=== PATIENT | male | born 1945 | race Caucasian/White ===

== ENCOUNTER 2018-04-12 17:50 | Inpatient (IN) ==
[2018-04-12] MEDS ORDERED: MethylPREDNISolone Sod Succinate Inj 125 MG/2 ML Vial IV.PUSH ONE (18:07)
[2018-04-12 18:29] LABS: ABG Base Excess 11.4 mmol/L (-2-2); ABG PCO2 89 mmHg (38-42); ABG PO2 52 mmHg (61-120)
--- NOTE | 2018-04-12 18:54 | XR ---
EXAM DATE: 04/12/2018 6:20 PM EDT AGE/SEX: 73 years / Male INDICATIONS: Shortness of breath today. CLINICAL DATA: This is the patient's initial encounter. Patient reports that signs and symptoms have been present for 1 day and indicates a pain score of 0/10. MEDICAL/SURGICAL HISTORY: Chronic obstructive pulmonary disease. Emphysema. Hypertension. Non e. COMPARISON: No prior exams available for comparison. FINDINGS: A single AP view of the chest demonstrates the lungs to be symmetrically aerated without evidence of mass, infiltrate or effusion. The cardiomediastinal contours are unremarkable. Osseous structures a re intact. CONCLUSION: No acute cardiopulmonary process. Electronically signed by: Hadley Parekh MD 04/12/2018 6:52 PM EDT
[2018-04-12] MEDS ORDERED: Azithromycin Inj 500 MG in Sodium Chlor 0.9% Inj 250 ML IV.SIG ONE (19:03)
--- NOTE | 2018-04-12 19:03 | ED ---
HPI General Chief Complaint: Respiratory Symptoms Stated Complaint: Respiratory Problem Time Seen by Provider: 04/12/18 17:58 Source: patient and family Mode of arrival: EMS Limitations: altered mental status History of Present Illness Patient is a 73-year-old male, past medical history significant for COPD on 4 L nasal cannula at home, hypertension, Parkinson's disease, neuropathy, who presents with complaint of shortness of breath. Most of the history comes from the as the patient is too dyspneic and too altered to answer most questions. She states that earlier today he started to be more disoriented than normal with increased work of breathing. This has worsened throughout the day prior to becoming here. She denies fevers and chills. Patient denies pain at this time. states that she and the patient have had an extensive discussion regarding his goals of care and they refuse intubation if it becomes necessary. Complaint: shortness of breath and cough Onset (ago): hour(s) Severity: severe Consistency/Duration: constant Relieving factors: nothing Exacerbating factors: nothing Known history of: COPD Treatment prior to arrival: oxygen Related Data Home oxygen amount: 4 liters Home Medications Medication Instructions Recorded Confirmed aspirin 81 mg PO DAILY 04/12/18 04/12/18 gabapentin 800 mg PO BID 04/12/18 04/12/18 ropinirole 0.25 mg PO TID 04/12/18 04/12/18 simvastatin 40 mg PO QPM 04/12/18 04/12/18 tramadol 50 mg PO Q6H 04/12/18 04/12/18 Allergies Allergy/AdvReac Type Severity Reaction Status Date / Time No Known Allergies Allergy Unverified 04/12/18 18:07 Review of Systems ROS Unobtainable unobtainable due to mental status Constitutional Denies fever(s) Cardiovascular Denies chest pain Respiratory Reports dyspnea Gastrointestinal Denies abdominal pain [facility] Medical History Medical History COPD (chronic obstructive pulmonary disease) (Acute) HTN (hypertension) (Acute) Neuropathy (Acute) Parkinson disease (Acute) Social History Social History Substance History: No History of Abuse Second Hand Smoke Exposure: No Smoking Status: Former smoker Tobacco Type: Cigarettes How Often Do You Have a Drink Containing Alcohol: Never Recent Travel in [facility] within the Last 8 Weeks: No Recent Out of Country Travel within the Last 8 Weeks: No Exam Narrative Exam Narrative: GENERAL: Elderly, confused male in acute respiratory distress SKIN: Focused skin assessment warm/dry, with multiple bruises over the forearms and shins. HEAD: Atraumatic. Normocephalic. EYES: Pupils equal and round. No scleral icterus. No injection or drainage. ENT: No nasal bleeding or discharge. Mucous membranes pink and moist. NECK: Trachea midline. No JVD. CARDIOVASCULAR: Tachycardic to the 100s. No murmur appreciated. Intact peripheral pulses RESPIRATORY: Severely diminished breath sounds throughout with faint wheezes. Extensive accessory muscle use. In acute respiratory distress. GASTROINTESTINAL: Abdomen soft, non-tender, nondistended. Hepatic and splenic margins not palpable. MUSCULOSKELETAL: No obvious deformities. No cyanosis. Slight edema to the bilateral lower extremities. NEUROLOGICAL: Awake and intermittently alert. No obvious cranial nerve deficits. Motor grossly within normal limits. Normal speech. PSYCHIATRIC: Appropriate mood and affect; insight and judgment normal. Course Reevaluation(s) Reevaluation #1: Patient is receiving first duoneb, but has not started improving yet. Time: 18:25 Reevaluation #2: Patient has received 2 breathing treatments and continue to be in distress. He will be placed on Bipap. Time: 18:35 Reevaluation #3: Patient is starting to improve on Bipap at this time. Time: 18:50 Additional Reevaluation(s): 1919: Patient is still having difficulty while on Bipap. I spoke again with the to confirm wishes. She states that they have had several conversations and refuse intubation. She understands that he may worsen, and ultimately . Several RTs and RN Ruben have been present for this conversation. Initial Documented Vital Signs Pulse Rate 112 H 04/12/18 18:20 Respiratory Rate 28 H 04/12/18 18:20 Last Documented Vital Signs Temperature 98.3 F 04/12/18 18:54 Pulse Rate 85 04/12/18 20:59 Respiratory Rate 24 04/12/18 20:59 Blood Pressure 113/59 L 04/12/18 20:59 Pulse Oximetry 98 04/12/18 20:59 Critical Care Time Critical Care Time: Yes Total Critical Care Time: 45 Attestation: Aggregate critical care time was 45 minutes. Time to perform other separately billable procedures was not included in the critical care time. My time did not include minutes spent treating any other patients simultaneously or on activities that did not directly contribute to the patient's treatment. The services I provided to this patient were to treat and/or prevent clinically significant deterioration that could result in: , disability, hypoxia, hypoxic brain injury I provided critical care services requiring my management, as noted below: Chart data review, documentation time, medication orders and management, vital sign assessments/reviewing monitor data, ordering and reviewing lab tests, ordering and interpreting/reviewing x-rays and diagnostic studies, care of the patient and discussion of the patient with the admitting physicians. Medical Decision Making MDM Narrative Medical decision making narrative: Patient is a 73-year-old male, past medical history significant for COPD on 4 L of oxygen at home, hypertension, Parkinson' s disease, who presents with complaint of worsening dyspnea and disorientation throughout the day. On arrival he cannot provide much history and most was obtained through the . He arrived in acute respiratory distress and was given several breathing treatments which did not help him. He was then placed on BiPAP after which he began to improve. He was given Solu-Medrol, Rocephin, azithromycin for his acute COPD exacerbation. I had several conversations with the regarding goals of care, and she adamantly refuses intubation with mechanical ventilation despite the consequences of which she is aware. I spoke with Dr. Lemus, the content producer, and we agreed that the patient should be admitted to the ICU at [facility]. Differential Diagnosis Differential Diagnosis: Differential diagnosis includes but is not limited to COPD exacerbation, pneumonia, pulmonary embolism, acute coronary syndrome, metabolic disturbance, pneumothorax. Medical Records Medical records reviewed: Yes I reviewed the patient's medical records. Lab Data Result diagrams: 04/12/18 19:35 04/12/18 19:35 Lab Results 04/12/18 04/12/18 04/12/18 Range/Units 18:20 19:35 19:35 CBC w Diff Auto diff final WBC 13.8 H (4.0-11.0) th/mm3 RBC 4.03 L (4.50-5.90) mil/mm3 Hgb 12.5 L (13.0-17.0) gm/dL Hct 37.0 L (39.0-51.0) % MCV 91.7 (80.0-100.0) fL MCH 31.0 (27.0-34.0) pg MCHC 33.7 (32.0-36.0) % RDW 15.4 (11.6-17.2) % Plt Count 239 (150-450) th/mm3 MPV 7.9 (7.0-11.0) fL Neut % (Auto) 89.1 H (16.0-70.0) % Lymph % (Auto) 3.2 L (9.0-44.0) % [place] % (Auto) 6.0 (0.0-8.0) % Eos % (Auto) 0.1 (0.0-4.0) % Baso % (Auto) 1.6 (0.0-2.0) % Neut # (Auto) 12.4 H (1.8-7.7) th/mm3 Lymph # (Auto) 0.4 L (1.0-4.8) th/mm3 [place] # (Auto) 0.8 (0.0-0.9) th/mm3 Eos # (Auto) 0.0 (0.0-0.4) th/mm3 Baso # (Auto) 0.2 (0.0-0.2) th/mm3 WBC Differential . Differential Comment . Puncture Site Left radial Patient Temperature 98.6 O2 Saturation 79 L* (90-100) % ABG pH 7.26 L* (7.380-7.420) ABG pCO2 89 H* (38-42) mmHg ABG pO2 52 L* (61-120) mmHg ABG HCO3 39 H (22-26) mmol/L ABG O2 Content 14.1 (12.0-20.0) Vol % ABG Base Excess 11.4 H (-2-2) mmol/L ABG Methemoglobin 1.3 (0-2) % Phillip Test Present Hemoglobin 12.7 (12.0-16.0) G/DL Carboxyhemoglobin 2.2 (0-4) % O2 Delivery Device Nasal cannula Liter Flow 4.00 L/M Inspired O2 21 % Critical Value Yes Sodium 136 (136-145) meq/L Potassium 3.6 (3.5-5.1) meq/L Chloride 95 L (98-107) meq/L Carbon Dioxide 37.5 H (21.0-32.0) meq/L Anion Gap 4 L (5-15) meq/L BUN 22 H (7-18) mg/dL Creatinine 0.72 (0.60-1.30) mg/dL Estimated GFR Greater than 89 (>89) mL/min Random Glucose 166 H (74-106) mg/dL Calcium 8.7 (8.5-10.1) mg/dL Total Bilirubin 0.8 (0.2-1.0) mg/dL AST 39 H (15-37) U/L ALT 17 (12-78) U/L Alkaline Phosphatase 85 (45-117) U/L Troponin I 0.03 (0.02-0.05) ng/mL Total Protein 7.1 (6.4-8.2) g/dL Albumin 3.5 (3.4-5.0) g/dL Imaging Data Attestation: I personally reviewed and interpreted this imaging study as follows : My impression: No acute cardiopulmonary process Radiologist's impression: Chest X-Ray 04/12/18 18:07 CONCLUSION: Discharge Plan Discharge Disposition Patient Disposition: 30 Still Patient Discharge Condition Condition: Critical Discharge Details Diagnosis: Respiratory failure with hypoxia and hypercapnia, Acute exacerbation of chronic obstructive pulmonary disease (COPD) Physicians Team ED Provider: Stacey George Primary Care Provider: UNKNOWN, Attending Provider: Juan Carlos Lemus Status ED Status: Admitted Patient
[2018-04-12 19:53] LABS: Baso # (Auto) 0.2 th/mm3 (0.0-0.2); Baso % (Auto) 1.6 % (0.0-2.0); Eos % (Auto) 0.1 % (0.0-4.0); Hemoglobin 12.5 gm/dL (13.0-17.0); Lymph # (Auto) 0.4 th/mm3 (1.0-4.8); Lymph % (Auto) 3.2 % (9.0-44.0); Mean Corpuscular HGB Conc 33.7 % (32.0-36.0); Mean Corpuscular Volume 91.7 fL (80.0-100.0); Mean Platelet Volume 7.9 fL (7.0-11.0); Mono # (Auto) 0.8 th/mm3 (0.0-0.9); Neut # (Auto) 12.4 th/mm3 (1.8-7.7); Neut % (Auto) 89.1 % (16.0-70.0); Platelet Count 239 th/mm3 (150-450); Red Blood Count 4.03 mil/mm3 (4.50-5.90); Red Cell Distribution Width 15.4 % (11.6-17.2); White Blood Count 13.8 th/mm3 (4.0-11.0)
[2018-04-12 20:06] LABS: Chloride 95 meq/L (98-107); Potassium 3.6 meq/L (3.5-5.1); Sodium 136 meq/L (136-145)
[2018-04-12 20:09] LABS: Albumin 3.5 g/dL (3.4-5.0); Anion Gap 4 meq/L (5-15); Calcium 8.7 mg/dL (8.5-10.1); Carbon Dioxide 37.5 meq/L (21.0-32.0); Glucose,Random 166 mg/dL (74-106)
[2018-04-12 20:10] LABS: Blood Urea Nitrogen 22 mg/dL (7-18)
[2018-04-12 20:12] LABS: Alanine Aminotransferase 17 U/L (12-78)
[2018-04-12 20:13] LABS: Aspartate Aminotransferase 39 U/L (15-37); Glomerular Filtration Rate Greater Than 89 mL/min (>89)
[2018-04-12 20:14] LABS: Total Protein 7.1 g/dL (6.4-8.2)
[2018-04-12 20:15] LABS: Alkaline Phosphatase 85 U/L (45-117)
[2018-04-12 20:17] LABS: Troponin I 0.03 ng/mL (0.02-0.05)
[2018-04-12 23:17] LABS: Bilirubin,Urine Negative (Negative); Clarity,Urine Clear (Clear); Color,Urine Yellow (Yellw/Straw); Glucose,Urine (UA) Negative (Negative); Leukocyte Esterase,Urine Negative (Negative); Nitrite,Urine Negative (Negative); Specific Gravity,Urine 1.025 (1.002-1.035); Urobilinogen,Urine 0.2 mg/dL (Less than 2)
[2018-04-12 23:23] LABS: Squamous Epithelial Cell,Urine 0-5 /hpf (0-5); WBC,Urine 0-5 /hpf (0-5)
--- NOTE | 2018-04-12 23:28 | P.HPCC ---
History of Present Illness Primary Care Physician: UNKNOWN History of Present Illness: 73-year-old male with past medical history significant for COPD on 4 L nasal cannula at home, hypertension, Parkinson's disease, neuropathy, presents with complaint of shortness of breath. Most of the history comes from the medical chart review as the patient is too dyspneic and too altered to answer most questions. Earlier today he started to be more disoriented than normal with increased work of breathing. This has worsened throughout the day prior to becoming here. He denies fevers and chills. Patient denies pain at this time. Per chart documentation the CODE STATUS was discussed with patient's who states that she and the patient have had an extensive discussion regarding his goals of care and they refuse intubation if it becomes necessary. Inpatient Certification: I certify that the inpatient services were ordered in accordance with Medicare regulations governing the order. This includes certification that hospital inpatient services are reasonable and necessary and in the case of services not specified as inpatient-only under 42 CFR 419.22(n), that they are appropriately provided as inpatient services in accordance to with the 2-midnight benchmark under 43 CFR 412.3(e) Review of Systems unobtainable due to mental condition PMFSH - History History Provided By: Family Member - Medical History Medical History: Medical History (Last Reviewed 04/12/18 @ 19:01 by Stacey George MD) COPD (chronic obstructive pulmonary disease) HTN (hypertension) Neuropathy Parkinson disease - Tobacco History Second Hand Smoke Exposure: No Tobacco Use In Past 30 Days: No Smoking Status: Former smoker Tobacco Type: Cigarettes - Alcohol History How Often Do You Have a Drink Containing Alcohol: Never - Substance Use History Substance History: No History of Abuse - Travel History Recent Travel in the [place] Within the Last 8 Weeks: No Recent Travel Out of the Country Within the Last 8 Weeks: No - Immunization History Tetanus Immunization: >5 Years Hx Influenza Vaccine This Season: Yes Medications and Allergies Allergies Allergy/AdvReac Type Severity Reaction Status Date / Time No Known Allergies Allergy Unverified 04/12/18 18:07 Home Medications Medication Instructions Recorded Confirmed Type aspirin 81 mg PO DAILY 04/12/18 04/12/18 History gabapentin 800 mg PO BID 04/12/18 04/12/18 History ropinirole 0.25 mg PO TID 04/12/18 04/12/18 History simvastatin 40 mg PO QPM 04/12/18 04/12/18 History tramadol 50 mg PO Q6H 04/12/18 04/12/18 History Results - Labs CBC & Chem 7: 04/12/18 19:35 04/12/18 19:35 Labs: Short CBC 04/12/18 Range/Units 19:35 WBC 13.8 H (4.0-11.0) th/mm3 Hgb 12.5 L (13.0-17.0) gm/dL Hct 37.0 L (39.0-51.0) % Plt Count 239 (150-450) th/mm3 BMP 04/12/18 19:35 Sodium 136 Potassium 3.6 Chloride 95 L Carbon Dioxide 37.5 H BUN 22 H Creatinine 0.72 Calcium 8.7 Cardiac Enzymes 04/12/18 Range/Units 19:35 Troponin I 0.03 (0.02-0.05) ng/mL Liver Function 04/12/18 Range/Units 19:35 Total Bilirubin 0.8 (0.2-1.0) mg/dL AST 39 H (15-37) U/L ALT 17 (12-78) U/L Alkaline Phosphatase 85 (45-117) U/L Albumin 3.5 (3.4-5.0) g/dL Urine 04/12/18 Range/Units 23:05 Urine Color Yellow (Yellw/Straw) Urine Clarity Clear (Clear) Urine pH 6.0 (5.0-8.5) Ur Specific Ellis 1.025 (1.002-1.035) Urine Protein Negative (Neg-Trace) mg/dL Urine Glucose (UA) Negative (Negative) mg/dL - Imaging Impressions Chest X-Ray 04/12/18 18:07 CONCLUSION: Exam Vital signs: Vital Signs 04/12/18 18:20 04/12/18 18:42 04/12/18 18:54 Temperature 98.3 F Pulse Rate 112 H 105 H Respiratory Rate 28 H 22 Blood Pressure 143/69 H Pulse Oximetry 94 L 83 L 04/12/18 18:59 04/12/18 20:59 04/12/18 21:35 Temperature Pulse Rate 95 H 85 Respiratory Rate 24 24 Blood Pressure 132/77 113/59 L Pulse Oximetry 97 98 97 04/12/18 22:45 04/12/18 22:46 Temperature Pulse Rate 86 Respiratory Rate 22 Blood Pressure 117/60 Pulse Oximetry 100 100 Intake & Output 04/12/18 04/12/18 04/13/18 06:59 18:59 06:59 Intake Total 350 / 350 Balance 350 / 350 Weight 77 kg Intake: IV 350 / 350 Azithromycin Inj 500 MG In NS 250 / 250 Inj 250 ML @ 250 mls/hr IV.SIG ONCE ONE Rx#:[id number] Rocephin Inj 1,000 MG In NS Inj 100 / 100 100 ML @ 200 mls/hr IV.SIG ONCE ONE Rx#:[id number] - Constitutional moderate distress - Routine HEENT Exam Head: Present: normocephalic, atraumatic Eye: Present: PERRL ENT: Present: mucous membranes moist - Routine Neck Exam Present: supple. Absent: JVD, carotid bruit - Routine Respiratory Exam Present: decreased breath sounds, rhonchi, wheezes. Absent: stridor, crackles - Routine Cardiovascular Exam Present: RRR, S1, S2 - Routine Abdominal Exam Present: soft, normoactive bowel sounds. Absent: tenderness - Routine Extremities Exam Absent: cyanosis, clubbing, edema - Routine Skin Exam Present: intact - Routine Neurological Exam Present: moving all extremities Caprini VTE Risk Assessment Caprini VTE Risk Assessment: Moderate/High Risk (score >= 2) Caprini Risk Assessment Model: Point Value = 1 Point Value = 2 Point Value = 3 Point Value = 5 Age 41-60 Minor surgery BMI > 25 kg/m2 Swollen legs Varicose veins or History of unexplained or recurrent spontaneous Oral contraceptives or hormone replacement Sepsis (< 1 month) Serious lung disease, including pneumonia (< 1 month) Abnormal pulmonary function Acute myocardial infarction Congestive heart failure (< 1 month) History of inflammatory bowel disease Medical patient at bed rest Age 61-74 Arthroscopic surgery Major open surgery (> 45 min) Laparoscopic surgery (> 45 min) Malignancy Confined to bed (> 72 hours) Immobilizing plaster cast Central venous access Age >= 75 History of VTE Family history of VTE Factor V Leiden Prothrombin [id number] Lupus anticoagulant Anticardiolipin antibodies Elevated serum homocysteine Heparin-induced thrombocytopenia Other congenital or acquired thrombophilia Stroke (< 1 month) Elective arthroplasty Hip, pelvis, or leg fracture Acute spinal cord injury (< 1 month) Prophylaxis Regimen: Total Risk Factor Score Risk Level Prophylaxis Regimen 0-1 Low Early ambulation 2 Moderate Order ONE of the following: *Sequential Compression Device (SCD) *Heparin 5000 units SQ BID 3-4 Higher Order ONE of the following medications: *Heparin 5000 units SQ TID *Enoxaparin/Lovenox 40 mg SQ daily (WT < 150 kg, CrCl > 30 mL/min) *Enoxaparin/Lovenox 30 mg SQ daily (WT < 150 kg, CrCl > 10-29 mL/min) *Enoxaparin/Lovenox 30 mg SQ BID (WT < 150 kg, CrCl > 30 mL/min) AND/OR *Sequential Compression Device (SCD) 5 or more Highest Order ONE of the following medications: *Heparin 5000 units SQ TID (Preferred with Epidurals) *Enoxaparin/Lovenox 40 mg SQ daily (WT < 150 kg, CrCl > 30 mL/min) *Enoxaparin/Lovenox 30 mg SQ daily (WT < 150 kg, CrCl > 10-29 mL/min) *Enoxaparin/Lovenox 30 mg SQ BID (WT < 150 kg, CrCl > 30 mL/min) AND *Sequential Compression Device (SCD) Assessment and Plan - Assessment and Plan Plan: Respiratory failure COPD exacerbation -BiPAP as needed -IV steroids -DuoNeb scheduled and as needed -Empiric antibiotics Neuropathy -Gabapentin Hypertension -As needed medication DVT GI prophylaxis -Teds SCDs -Subcu heparin -Pepcid Critical Care: The total critical care time was 35 minutes. Time to perform other separately billable procedures was not included in the critical care time.
[2018-04-13] MEDS ORDERED: Acetaminophen 325 MG Tablet PO PRN (04:03)
[2018-04-13] MEDS ORDERED: Bisacodyl 10 MG Supp RECTAL PRN (04:03)
[2018-04-13] MEDS ORDERED: Sod Chloride 0.9% Inj 1,000 ML IV.CONT SCH (04:15)
[2018-04-13] MEDS: MethylPREDNISolone Sod Succinate Inj 40 MG/ML Vial IV.PUSH SCH ×4 (04:54→22:59)
[2018-04-13] MEDS: Heparin - SQ 10,000 UNITS/ML Vial SQ SCH ×3 (05:01→22:59)
[2018-04-13 06:33] LABS: Baso % (Auto) 0.2 % (0.0-2.0); Hematocrit 34.7 % (39.0-51.0); Hemoglobin 11.4 gm/dL (13.0-17.0); Lymph # (Auto) 0.6 th/mm3 (1.0-4.8); Lymph % (Auto) 11.4 % (9.0-44.0); Mono # (Auto) 0.3 th/mm3 (0.0-0.9); Mono % (Auto) 4.8 % (0.0-8.0); Neut # (Auto) 4.8 th/mm3 (1.8-7.7); Neut % (Auto) 83.6 % (16.0-70.0); Platelet Count 199 th/mm3 (150-450); Red Blood Count 3.81 mil/mm3 (4.50-5.90); Red Cell Distribution Width 15.2 % (11.6-17.2); White Blood Count 5.7 th/mm3 (4.0-11.0)
[2018-04-13 06:46] LABS: Activated Partial Thrombo Time 25.5 sec (24.3-30.1); INR 1.1 Ratio; Prothrombin Time 11.3 sec (9.8-11.6)
[2018-04-13 06:52] LABS: Albumin 2.9 g/dL (3.4-5.0); Anion Gap 7 meq/L (5-15); Aspartate Aminotransferase 27 U/L (15-37); Blood Urea Nitrogen 18 mg/dL (7-18); Calcium 8.7 mg/dL (8.5-10.1); Carbon Dioxide 37.4 meq/L (21.0-32.0); Chloride 95 meq/L (98-107); Glomerular Filtration Rate Greater Than 89 mL/min (>89); Glucose,Random 119 mg/dL (74-106); Magnesium 2.4 mg/dL (1.5-2.5); Potassium 4.1 meq/L (3.5-5.1); Sodium 139 meq/L (136-145)
[2018-04-13 06:53] LABS: Alanine Aminotransferase 32 U/L (12-78); Phosphorus 3.5 mg/dL (2.5-4.9)
[2018-04-13 06:56] LABS: Alkaline Phosphatase 74 U/L (45-117); Total Protein 6.3 g/dL (6.4-8.2); Troponin I 0.02 ng/mL (0.02-0.05)
[2018-04-13] MEDS: Gabapentin 400 MG Capsule PO SCH ×2 (07:59→20:00)
[2018-04-13] MEDS: Famotidine PF Inj 20 MG/2 ML Vial IV.PUSH SCH ×2 (08:00→20:00)
[2018-04-13] MEDS: Senna/Docusate Sodium 8.6/50 MG Tablet PO SCH ×2 (08:00→20:00)
--- NOTE | 2018-04-13 08:21 | P.PNCC ---
Subjective Subjective Remarks/Hospital Course: 73-year-old male with past medical history significant for COPD on 4 L nasal cannula at home, hypertension, Parkinson's disease, neuropathy, presents with complaint of shortness of breath. Most of the history comes from the medical chart review as the patient is too dyspneic and too altered to answer most questions. Earlier today he started to be more disoriented than normal with increased work of breathing. This has worsened throughout the day prior to becoming here. He denies fevers and chills. Patient denies pain at this time. Per chart documentation the CODE STATUS was discussed with patient's who states that she and the patient have had an extensive discussion regarding his goals of care and they refuse intubation if it becomes necessary. SUBJ 04/13: Patient is subjectively short of breath but he claims he is improved from yesterday. Slightly tachypneic bilateral mild wheezing heard on exam. Oxygen saturation maintained on 5 L nasal cannula. I have added Spiriva and Symbicort and asked for pulmonology consult Objective Vital Signs / I&O: Vital Signs 04/12/18 18:20 04/12/18 18:42 04/12/18 18:54 Temperature 98.3 F Pulse Rate 112 H 105 H Respiratory Rate 28 H 22 Blood Pressure 143/69 H Pulse Oximetry 94 L 83 L 04/12/18 18:59 04/12/18 20:59 04/12/18 21:35 Temperature Pulse Rate 95 H 85 Respiratory Rate 24 24 Blood Pressure 132/77 113/59 L Pulse Oximetry 97 98 97 04/12/18 22:45 04/12/18 22:46 04/13/18 00:02 Temperature Pulse Rate 86 83 Respiratory Rate 22 22 Blood Pressure 117/60 113/53 L Pulse Oximetry 100 100 04/13/18 00:15 04/13/18 01:21 04/13/18 01:45 Temperature Pulse Rate 80 Respiratory Rate 22 Blood Pressure 122/70 Pulse Oximetry 99 96 04/13/18 02:00 04/13/18 02:41 04/13/18 04:00 Temperature 97.6 F Pulse Rate 90 75 Respiratory Rate 14 26 H Blood Pressure 138/76 Pulse Oximetry 97 97 04/13/18 05:00 04/13/18 05:33 04/13/18 06:00 Temperature Pulse Rate 78 80 Respiratory Rate 30 H 24 Blood Pressure 135/66 155/67 H Pulse Oximetry 100 100 100 04/13/18 07:37 Temperature Pulse Rate 80 Respiratory Rate 16 Blood Pressure Pulse Oximetry Intake & Output 04/12/18 04/13/18 04/13/18 18:59 06:59 18:59 Intake Total 590 / 590 Output Total 350 / 350 Balance 240 / 240 Weight 77 kg 76.3 kg Intake: IV 350 / 350 Azithromycin Inj 500 MG In NS 250 / 250 Inj 250 ML @ 250 mls/hr IV.SIG ONCE ONE Rx#:[id number] Rocephin Inj 1,000 MG In NS Inj 100 / 100 100 ML @ 200 mls/hr IV.SIG ONCE ONE Rx#:[id number] Oral 240 / 240 Output: Urine 350 / 350 Other: # Incontinent Voids 1 Date of Last Bowel Movement 04/12/18 # Bowel Movements 0 Weight On Admission 76.3 kg Result Diagrams: 04/13/18 06:02 04/13/18 06:02 Objective Remarks: - Constitutional Mild distress - Routine HEENT Exam Head: normocephalic, atraumatic Eye: PERRL ENT:mucous membranes moist - Routine Neck Exam supple. Absent: JVD, carotid bruit - Routine Respiratory Exam decreased breath sounds, wityh bilateral rhonchi, wheezes. No crackles - Routine Cardiovascular Exam RRR, S1, S2 - Routine Abdominal Exam soft, normoactive bowel sounds. Absent: tenderness - Routine Extremities Exam cyanosis, clubbing, edema - Routine Skin Exam intact - Routine Neurological Exam moving all extremities Assessment and Plan - Assessment and Plan Plan: Respiratory failure COPD exacerbation -BiPAP as needed -IV steroids -DuoNeb scheduled and as needed -Empiric antibiotics -Add Symbicort and Spiriva -Pulmonology consult Neuropathy -Gabapentin Hypertension -As needed medication DVT GI prophylaxis -Teds SCDs -Subcu heparin -Pepcid Critical Care: Level 2 I confirmed with the patient he wants to be a DNI. He is almost back to his baseline I will consult hospitalist to assume care 04/14/2018. Will transfer to Med/Surg with Tele in the afternoon, if he remains stable Code Status: ALT CODE/DNI
[2018-04-13] MEDS: Budesonide-Formoterol 160/4.5 MCG 6 GM Inhaler INH SCH ×2 (10:08→20:00)
[2018-04-13] MEDS: Tiotropium Bromide 18 MCG/ACT Inhaler INH SCH (10:08)
[2018-04-13 10:42] LABS: ABG Base Excess 11.3 mmol/L (-2-2); ABG PCO2 57 mmHg (38-42); ABG PO2 63 mmHG (61-120)
--- NOTE | 2018-04-13 10:45 | MB ---
cc: Diana Walters MD DATE: 04/13/2018 HISTORY OF PRESENT ILLNESS: The patient is a 73-year-old male with a past medical history of severe COPD on four liter home oxygen continuously, hypertension, Parkinson's disease, neuropathy. He was admitted under critical care medicine yesterday for worsening shortness of breath and being disoriented. ABG was performed on room air, which showed acute hypercapnic and hypoxemic respiratory failure with a pH of 7.26, pCO2 89, PaO2 52, bicarbonate 39 and saturation of 79%. Chest x-ray on admission showed no evidence of any acute cardiopulmonary disease. The patient was started empirically on antibiotics in addition to bronchodilators and IV steroids. Pulmonary medicine was consulted for COPD exacerbation. When seen, the patient is on 4 liter oxygen with a saturation of 94% to 95%. He reports shortness of breath with minimal exertion for several months. He quit smoking 10 years ago and used to smoke a pack a day for about 40 years. He is on nebulizers and Symbicort at home in addition to his home oxygen. He denies any prior history of intubation for his COPD. He denies any edema of the lower extremities. However, the patient reports a productive cough with brown phlegm prior to arrival. He denies any wheezing, fever, chills, or any constitutional symptoms. Furthermore, the patient denies any nausea, vomiting or abdominal pain. PAST MEDICAL HISTORY: Significant for COPD on 4 liters of home oxygen, hypertension, Parkinson's disease, neuropathy. SOCIAL HISTORY: Ex-smoker, quit smoking about 10 years ago with a [id number] history of smoking. Nondrinker. ALLERGIES: NO KNOWN DRUG ALLERGIES. MEDICATIONS AT HOME: Include: 1. Simvastatin. 2. Gabapentin. 3. Aspirin. 4. Tramadol. 5. Ropinirole. FAMILY HISTORY: Noncontributory to present illness. REVIEW OF SYSTEMS: As per HPI. The rest of review of systems unremarkable. PHYSICAL EXAMINATION: GENERAL: A 73-year-old male lying in bed in mild respiratory distress, appears tachypneic. VITAL SIGNS: Afebrile, temperature 97.6, pulse of 99, respiratory rate of 25, blood pressure 120/55, saturation 94-95% on 4 liters of oxygen. HEENT: Atraumatic, normocephalic. Pupils are equal, round, reactive to light and accommodation. Extraocular muscles intact. Conjunctivae pink. Nonicteric sclerae. Oral mucosa within normal. NECK: Supple. No JVD, adenopathy or thyromegaly. Trachea in the midline. CARDIOVASCULAR: Regular rate and rhythm. Normal S1, S2. No murmurs, rubs or gallops noted. PULMONARY: Bilateral equal air entry. Overall diminished breath sounds. No wheezing. ABDOMEN: Soft, nontender. No distention. Positive bowel sounds. EXTREMITIES: No cyanosis, clubbing or edema. NEUROLOGIC: No focal sensory deficit. LABORATORY DATA: WBC 5.7, hemoglobin 11.4, hematocrit 34, platelet count 199. Sodium 139, potassium 4.1, chloride 95, CO2 37, BUN 18, creatinine 0.68, glucose of 119. RADIOGRAPHIC STUDIES: Chest x-ray showed no evidence of any acute cardiopulmonary disease. IMPRESSIONS: 1. Acute hypercapnic and hypoxemic respiratory failure. 2. Chronic obstructive pulmonary disease exacerbation. 3. History of tobacco abuse. 4. Leukocytosis, resolved. 5. Hypertension. 6. Parkinson's disease. 7. Neuropathy. RECOMMENDATIONS: 1. Continue with oxygen and maintain sats above 92%. 2. Continue with current bronchodilators in the form of DuoNeb, Symbicort 160/4.5 two puffs q. 12, Spiriva daily. Agree with IV steroids. He is currently on Solu-Medrol 40 mg IV q. 6 hours. Noninvasive positive pressure ventilation p.r.n. for respiratory distress. 3. Continue with current antibiotics in the form of Rocephin and azithromycin. Monitor for signs of infection which include fever and WBC. I will obtain a sputum culture with gram stain. 4. We will give Diamox 250 mg IV x 1. 5. We will need a pulmonary function test as an outpatient to assess the severity of his obstructive lung disease. 6. Gastrointestinal and deep venous thrombosis prophylaxis. The patient is on Pepcid and heparin subcutaneously respectively. 7. CODE STATUS: Alternative code per records. 8. Further recommendations will be based on hospital course. Thank you for this consultation and allowing us to participate in this patient's care. MD MAHNAZ Momin/DL , 10:14 AM , 10:27 AM
--- NOTE | 2018-04-13 12:06 | ECG ---
Date Performed: 04/12/2018 Time Performed: 18:18:25 PTAGE: 73 years EKG: SINUS TACHYCARDIA POSSIBLE RIGHT VENTRICULAR CONDUCTION DELAY MINIMAL ST DEPRESSION ABNORMA L RHYTHM ECG NO PREVIOUS TRACING DOCTOR: Ruddy Fallon Interpretating Date/Time 04/13/2018 12:04:01
--- NOTE | 2018-04-13 12:29 | ECG ---
Date Performed: 04/13/2018 Time Performed: 04:41:36 PTAGE: 73 years EKG: Sinus rhythm . Normal ECG PREVIOUS TRACING 04/12/18/.18 Since the previous tracing, no significant change noted DOCTOR: Ruddy Fallon Interpretating Date/Time 04/13/2018 12:28:25
[2018-04-13] MEDS: Azithromycin Inj 500 MG in Sodium Chlor 0.9% Inj 250 ML IV.SIG SCH (19:52)
[2018-04-14] MEDS ORDERED: Chlorhexidine Gluconate 2% 1 Pack (2 Cloths) TOPICAL PRN (04:00)
[2018-04-14] MEDS: MethylPREDNISolone Sod Succinate Inj 40 MG/ML Vial IV.PUSH SCH ×4 (05:23→23:27)
[2018-04-14] MEDS: Chlorhexidine Gluconate 2% 1 Pack (2 Cloths) TOPICAL SCH (05:23)
[2018-04-14] MEDS: Heparin - SQ 10,000 UNITS/ML Vial SQ SCH ×3 (05:24→22:00)
--- NOTE | 2018-04-14 07:40 | P.PNFP ---
Subjective Interval history: Pt seen and examined for f/u of COPD exacerbation. Reports he is feeling much better. States he did not require BiPAP overnight. Still with some SOB but almost back to his baseline. Only concern is his breakfast is late this morning. Denies CP, abdominal pain, N/V. Endorses some SOB and wheezing still. States he takes Symbicort at home but hasn't been on Spiriva. Results - Labs Result diagrams: 04/13/18 06:02 04/13/18 06:02 Abnormal lab results 04/13/18 04/13/18 Range/Units 10:29 11:00 ABG pCO2 57 H* (38-42) mmHg ABG HCO3 36 H (22-26) mmol/L ABG Base Excess 11.3 H (-2-2) mmol/L Hemoglobin 11.6 L (12.0-16.0) G/DL Troponin I Less than 0.02 L (0.02-0.05) ng/mL Cardiac Enzymes 04/13/18 Range/Units 11:00 Troponin I Less than 0.02 L (0.02-0.05) ng/mL - Imaging Impressions Chest X-Ray 04/12/18 18:07 CONCLUSION: No acute cardiopulmonary process. Physical Exam Vital signs: Vital Signs 04/13/18 07:37 04/13/18 08:00 04/13/18 09:00 Temperature 97.6 F Pulse Rate 80 86 97 H Respiratory Rate 16 26 H 17 Blood Pressure 131/62 Pulse Oximetry 93 L 93 L 04/13/18 09:01 04/13/18 09:02 04/13/18 10:00 Temperature Pulse Rate 101 H 104 H 99 H Respiratory Rate 30 H 35 H 28 H Blood Pressure 141/62 H Pulse Oximetry 93 L 93 L 95 04/13/18 10:03 04/13/18 11:00 04/13/18 11:05 Temperature Pulse Rate 99 H 97 H 93 H Respiratory Rate 25 H 19 12 Blood Pressure 120/55 L 122/59 L Pulse Oximetry 95 93 L 94 L 04/13/18 12:00 04/13/18 13:00 04/13/18 14:00 Temperature 99.1 F Pulse Rate 93 H 102 H 90 Respiratory Rate 22 24 22 Blood Pressure 121/58 L 116/57 L 107/53 L Pulse Oximetry 94 L 97 96 04/13/18 15:00 04/13/18 15:01 04/13/18 15:34 Temperature Pulse Rate 93 H 96 H 93 H Respiratory Rate 28 H 48 H 14 Blood Pressure 126/62 Pulse Oximetry 93 L 93 L 04/13/18 16:00 04/13/18 17:00 04/13/18 18:00 Temperature 98.7 F Pulse Rate 93 H 94 H 100 H Respiratory Rate 27 H 33 H 33 H Blood Pressure 116/58 L 117/59 L 120/62 Pulse Oximetry 98 91 L 91 L 04/13/18 19:00 04/13/18 19:28 04/13/18 20:00 Temperature 98.9 F Pulse Rate 90 89 91 H Respiratory Rate 25 H 20 30 H Blood Pressure 117/60 122/60 Pulse Oximetry 97 97 92 L 04/13/18 21:00 04/13/18 22:00 04/13/18 23:00 Temperature Pulse Rate 85 81 79 Respiratory Rate 26 H 25 H 21 Blood Pressure 112/59 L 107/58 L 117/59 L Pulse Oximetry 94 L 95 99 04/13/18 23:30 04/13/18 23:37 04/14/18 00:00 Temperature 98.9 F Pulse Rate 92 H 90 Respiratory Rate 25 H 18 26 H Blood Pressure 129/60 Pulse Oximetry 98 04/14/18 01:00 04/14/18 02:00 04/14/18 03:00 Temperature Pulse Rate 94 H 91 H 82 Respiratory Rate 22 30 H 32 H Blood Pressure 116/59 L 124/64 119/57 L Pulse Oximetry 98 94 L 90 L 04/14/18 04:00 04/14/18 04:09 04/14/18 05:00 Temperature 97.7 F Pulse Rate 80 84 79 Respiratory Rate 18 24 15 Blood Pressure 115/55 L 118/58 L Pulse Oximetry 92 L 100 04/14/18 06:00 04/14/18 07:20 Temperature Pulse Rate 90 93 H Respiratory Rate 32 H 22 Blood Pressure 146/70 H Pulse Oximetry 100 96 Intake & Output 04/13/18 04/14/18 04/14/18 18:59 06:59 18:59 Intake Total 1482 / 1482 1070 / 1070 Output Total 650 / 650 1650 / 1650 Balance 832 / 832 -580 / -580 Weight 78.6 kg Intake: IV 482 / 482 350 / 350 NS Inj 1,000 ML @ 84 mls/hr IV. 382 / 382 CONT .[id number] [facility] Rx#:[id number] Azithromycin Inj 500 MG In NS 250 / 250 Inj 250 ML @ 250 mls/hr IV.SIG Q24H [facility] Rx#:[id number] Rocephin Inj 1,000 MG In NS Inj 100 / 100 100 / 100 100 ML @ 200 mls/hr IV.SIG Q12H NAZ[facility] Rx#:[id number] Oral 1000 / 1000 720 / 720 Output: Urine 650 / 650 1650 / 1650 Other: # Incontinent Voids 1 Date of Last Bowel Movement 04/12/18 04/12/18 # Bowel Movements 0 Narrative: GENERAL: WN, WD elderly male resting in bed in NAD. SKIN: Warm and dry. Scattered ecchymoses over extremities. HEENT: AT/NC. Pupils equal and round. MMM. HEART: RRR no m/r/g. LUNGS: Diminished breath sounds with end-expiratory wheezing. ABDOMEN: +BS, soft, NT, ND. EXTREMITIES: No LE edema. Onychomycosis of toenails. NEURO: Awake and alert. Bilateral resting tremor. PSYCH: Appropriate mood and affect. Assessment and Plan - Assessment (1) Respiratory failure with hypoxia and hypercapnia Code(s): J96.91 - Respiratory failure, unspecified with hypoxia; J96.92 - Respiratory failure, unspecified with hypercapnia Status: Acute (2) Acute exacerbation of chronic obstructive pulmonary disease (COPD) Code(s): J44.1 - Chronic obstructive pulmonary disease with (acute) exacerbation Status: Acute - Assessment and Plan 73 year old male with O2-dependent COPD, Parkinson's, and neuropathy admitted on 04/12 for acute respiratory failure secondary to COPD exacerbation. 1. COPD exacerbation, acute hypoxemic/hypercapnic respiratory failure - ABG on admission with pH 7.26, PCO2 89, PO2 52, and bicarb 39 - CXR unremarkable - Decrease SoluMedrol to 40 mg IV Q8H - DuoNeb - Rocephin and Azithromycin - Continue Symbicort and Spiriva (was not on Spiriva at home) - Supplemental O2 and BiPAP PRN - Pulmonology following, appreciate reccs 2. Parkinson's disease - Continue home ropinirole 3. Neuropathy - Continue home gabapentin 4. HLD - Continue home statin GI prophylaxis: Pepcid given systemic steroids DVT prophylaxis: Heparin Discharge Planning: Possibly in next 1-2 days pending continued clinical improvement (1) Respiratory failure with hypoxia and hypercapnia Qualifiers: Chronicity: acute on chronic Qualified Code(s): J96.21 - Acute and chronic respiratory failure with hypoxia; J96.22 - Acute and chronic respiratory failure with hypercapnia
[2018-04-14] MEDS: Gabapentin 400 MG Capsule PO SCH ×2 (08:55→21:59)
[2018-04-14] MEDS: Senna/Docusate Sodium 8.6/50 MG Tablet PO SCH ×2 (08:55→22:01)
[2018-04-14] MEDS: Famotidine PF Inj 20 MG/2 ML Vial IV.PUSH SCH ×2 (08:56→22:00)
[2018-04-14] MEDS: Budesonide-Formoterol 160/4.5 MCG 6 GM Inhaler INH SCH ×2 (08:57→22:01)
[2018-04-14] MEDS: Tiotropium Bromide 18 MCG/ACT Inhaler INH SCH (08:57)
--- NOTE | 2018-04-14 10:02 | P.PNPL ---
Subjective Interval history: Patient remains on 4L oxygen with good sats, reports SOB with minimal exertion. Off BIPAP. ABG yesterday showed improvements in his resp acidosis. Afebrile. Physical Exam Vital signs: Vital Signs 04/13/18 10:00 04/13/18 10:03 04/13/18 11:00 Temperature Pulse Rate 99 H 99 H 97 H Respiratory Rate 28 H 25 H 19 Blood Pressure 120/55 L 122/59 L Pulse Oximetry 95 95 93 L 04/13/18 11:05 04/13/18 12:00 04/13/18 13:00 Temperature 99.1 F Pulse Rate 93 H 93 H 102 H Respiratory Rate 12 22 24 Blood Pressure 121/58 L 116/57 L Pulse Oximetry 94 L 94 L 97 04/13/18 14:00 04/13/18 15:00 04/13/18 15:01 Temperature Pulse Rate 90 93 H 96 H Respiratory Rate 22 28 H 48 H Blood Pressure 107/53 L 126/62 Pulse Oximetry 96 93 L 93 L 04/13/18 15:34 04/13/18 16:00 04/13/18 17:00 Temperature 98.7 F Pulse Rate 93 H 93 H 94 H Respiratory Rate 14 27 H 33 H Blood Pressure 116/58 L 117/59 L Pulse Oximetry 98 91 L 04/13/18 18:00 04/13/18 19:00 04/13/18 19:28 Temperature Pulse Rate 100 H 90 89 Respiratory Rate 33 H 25 H 20 Blood Pressure 120/62 117/60 Pulse Oximetry 91 L 97 97 04/13/18 20:00 04/13/18 21:00 04/13/18 22:00 Temperature 98.9 F Pulse Rate 91 H 85 81 Respiratory Rate 30 H 26 H 25 H Blood Pressure 122/60 112/59 L 107/58 L Pulse Oximetry 92 L 94 L 95 04/13/18 23:00 04/13/18 23:30 04/13/18 23:37 Temperature Pulse Rate 79 92 H Respiratory Rate 21 25 H 18 Blood Pressure 117/59 L Pulse Oximetry 99 04/14/18 00:00 04/14/18 01:00 04/14/18 02:00 Temperature 98.9 F Pulse Rate 90 94 H 91 H Respiratory Rate 26 H 22 30 H Blood Pressure 129/60 116/59 L 124/64 Pulse Oximetry 98 98 94 L 04/14/18 03:00 04/14/18 04:00 04/14/18 04:09 Temperature 97.7 F Pulse Rate 82 80 84 Respiratory Rate 32 H 18 24 Blood Pressure 119/57 L 115/55 L Pulse Oximetry 90 L 92 L 04/14/18 05:00 04/14/18 06:00 04/14/18 07:20 Temperature Pulse Rate 79 90 93 H Respiratory Rate 15 32 H 22 Blood Pressure 118/58 L 146/70 H Pulse Oximetry 100 100 96 Intake & Output 04/13/18 04/14/18 04/14/18 18:59 06:59 18:59 Intake Total 1482 / 1482 1070 / 1070 Output Total 650 / 650 1650 / 1650 Balance 832 / 832 -580 / -580 Weight 78.6 kg Intake: IV 482 / 482 350 / 350 NS Inj 1,000 ML @ 84 mls/hr IV. 382 / 382 CONT .[id number] NAZ[facility] Rx#:[id number] Azithromycin Inj 500 MG In NS 250 / 250 Inj 250 ML @ 250 mls/hr IV.SIG Q24H [facility] Rx#:[id number] Rocephin Inj 1,000 MG In NS Inj 100 / 100 100 / 100 100 ML @ 200 mls/hr IV.SIG Q12H NZAIA Rx#:[id number] Oral 1000 / 1000 720 / 720 Output: Urine 650 / 650 1650 / 1650 Other: # Incontinent Voids 1 Date of Last Bowel Movement 04/12/18 04/12/18 # Bowel Movements 0 - Constitutional mild distress - Routine HEENT Exam Head: Present: normocephalic, atraumatic Eye: Present: EOMI, PERRL, conjunctivae pink ENT: Present: mucous membranes moist, oropharynx clear, nares patent - Routine Neck Exam Present: supple, full ROM, trachea midline - Routine Respiratory Exam Present: decreased breath sounds - Routine Cardiovascular Exam Present: RRR, S1, S2 - Routine Abdominal Exam Present: soft, normoactive bowel sounds - Routine Skin Exam Present: intact - Routine Neurological Exam Present: alert, oriented X3, CN II-XII intact, moving all extremities, normal speech - Routine Psychiatric Exam Present: normal affect, cooperative Assessment and Plan - Plan 1. Acute hypercapnic and hypoxemic respiratory failure. 2. Chronic obstructive pulmonary disease exacerbation. 3. History of tobacco abuse. 4. Leukocytosis, resolved. 5. Hypertension. 6. Parkinson's disease. 7. Neuropathy. Plan Continue with oxygen and maintain sats > 92%. Bronchodilators( DuoNeb, Symbicort, Spiriva daily). Solu-Medrol 40 mg IV q. 6 hours. BIPAP p.r.n. for respiratory distress. Continue with abx( Rocephin and azithromycin). Monitor for signs(fever and WBC) CXR showed no acute disease s/p Diamox 250 mg IV x 1 yesterday. PFT as an outpatient to assess the severity of his obstructive lung disease. GI and deep venous thrombosis prophylaxis on Pepcid and heparin subcutaneously respectively. CODE STATUS: Alternative code per records.
[2018-04-14] MEDS ORDERED: guaiFENesin 600 MG ER Tablet PO ONE (11:34)
--- NOTE | 2018-04-14 14:15 | ECG ---
Date Performed: 04/13/2018 Time Performed: 10:23:16 PTAGE: 73 years EKG: Sinus rhythm NORMAL ECG PREVIOUS TRACING : 04/13/2018 04.41 DOCTOR: Jonathan Gaming Interpretating Date/Time 04/14/2018 14:10:20
[2018-04-14] MEDS: Azithromycin Inj 500 MG in Sodium Chlor 0.9% Inj 250 ML IV.SIG SCH (18:23)
[2018-04-14] MEDS: Temazepam 15 MG Capsule PO PRN (21:59)
[2018-04-14] MEDS: guaiFENesin 600 MG ER Tablet PO SCH (21:59)
[2018-04-15] MEDS: Chlorhexidine Gluconate 2% 1 Pack (2 Cloths) TOPICAL SCH (05:25)
[2018-04-15] MEDS: MethylPREDNISolone Sod Succinate Inj 40 MG/ML Vial IV.PUSH SCH ×3 (06:02→20:01)
[2018-04-15] MEDS: Heparin - SQ 10,000 UNITS/ML Vial SQ SCH ×3 (06:02→22:10)
[2018-04-15] MEDS: Famotidine PF Inj 20 MG/2 ML Vial IV.PUSH SCH ×2 (08:26→20:01)
[2018-04-15] MEDS: guaiFENesin 600 MG ER Tablet PO SCH ×2 (08:27→20:01)
[2018-04-15] MEDS: Budesonide-Formoterol 160/4.5 MCG 6 GM Inhaler INH SCH ×2 (08:27→20:03)
[2018-04-15] MEDS: Gabapentin 400 MG Capsule PO SCH ×2 (08:27→20:01)
[2018-04-15] MEDS: Senna/Docusate Sodium 8.6/50 MG Tablet PO SCH ×2 (08:27→20:02)
[2018-04-15] MEDS: Tiotropium Bromide 18 MCG/ACT Inhaler INH SCH (08:28)
[2018-04-15 08:50] LABS: Mean Corpuscular HGB Conc 33.2 % (32.0-36.0); Mean Corpuscular Hemoglobin 30.3 pg (27.0-34.0); Mean Platelet Volume 8.9 fL (7.0-11.0); Platelet Count 190 th/mm3 (150-450); Red Blood Count 3.95 mil/mm3 (4.50-5.90); Red Cell Distribution Width 15.1 % (11.6-17.2); White Blood Count 7.9 th/mm3 (4.0-11.0)
[2018-04-15 09:11] LABS: Anion Gap 5 meq/L (5-15); Blood Urea Nitrogen 22 mg/dL (7-18); Calcium 8.3 mg/dL (8.5-10.1); Chloride 100 meq/L (98-107); Glomerular Filtration Rate Greater Than 89 mL/min (>89); Glucose,Random 145 mg/dL (74-106); Sodium 139 meq/L (136-145)
--- NOTE | 2018-04-15 10:02 | P.PNPL ---
Subjective Interval history: Patient is on 4L oxygen states his breathing is somewhat better, afebrile. Physical Exam Vital signs: Vital Signs 04/14/18 11:51 04/14/18 12:00 04/14/18 16:00 Temperature 98.3 F 98 F Pulse Rate 104 H 90 92 H Respiratory Rate 18 20 20 Blood Pressure 136/72 128/69 Pulse Oximetry 96 96 04/14/18 16:09 04/14/18 20:00 04/14/18 21:48 Temperature 97.9 F Pulse Rate 93 H 104 H 98 H Respiratory Rate 12 20 24 Blood Pressure 145/69 H Pulse Oximetry 97 90 L 93 L 04/15/18 00:00 04/15/18 00:46 04/15/18 04:00 Temperature 98.1 F 97.5 F L Pulse Rate 98 H 98 H 89 Respiratory Rate 20 22 20 Blood Pressure 133/72 143/75 H Pulse Oximetry 97 93 L 04/15/18 04:19 04/15/18 08:45 Temperature Pulse Rate 86 95 H Respiratory Rate 20 Blood Pressure Pulse Oximetry 96 Intake & Output 04/14/18 04/15/18 04/15/18 18:59 06:59 18:59 Intake Total 340 / 340 890 / 890 100 / 100 Output Total 700 / 700 Balance 340 / 340 190 / 190 100 / 100 Weight 78.7 kg 79.6 kg Intake: IV 100 / 100 350 / 350 100 / 100 Azithromycin Inj 500 MG In NS 250 / 250 Inj 250 ML @ 250 mls/hr IV.SIG Q24H [facility] Rx#:[id number] Rocephin Inj 1,000 MG In NS Inj 100 / 100 100 / 100 100 / 100 100 ML @ 200 mls/hr IV.SIG Q12H NAZ[facility] Rx#:[id number] Oral 240 / 240 540 / 540 Output: Urine 700 / 700 Other: Date of Last Bowel Movement 04/12/18 # Bowel Movements 0 - Constitutional mild distress - Routine HEENT Exam Head: Present: normocephalic, atraumatic Eye: Present: EOMI, PERRL, normal accommodation, conjunctivae pink ENT: Present: mucous membranes moist - Routine Neck Exam Present: supple, full ROM, JVD, trachea midline - Routine Respiratory Exam Present: decreased breath sounds - Routine Cardiovascular Exam Present: RRR, S1, S2 - Routine Abdominal Exam Present: soft - Routine Extremities Exam Present: full ROM, pulses intact - Routine Skin Exam Present: intact - Routine Neurological Exam Present: alert, oriented X3, CN II-XII intact - Routine Psychiatric Exam Present: normal affect Assessment and Plan - Plan 1. Acute hypercapnic and hypoxemic respiratory failure. 2. Chronic obstructive pulmonary disease exacerbation. 3. History of tobacco abuse. 4. Leukocytosis, resolved. 5. Hypertension. 6. Parkinson's disease. 7. Neuropathy. Plan Continue with oxygen keep sats > 92%. Bronchodilators( DuoNeb, Symbicort, Spiriva daily). Solu-Medrol 40 mg IV q. 6 hours. BIPAP p.r.n. for respiratory distress. Continue with abx( Rocephin and azithromycin). Monitor for signs(fever and WBC) Sputum cx 04/13: normal resp eyal Give Diamox 250mg IV x1 CXR 04/12 showed no acute disease PFT as an outpatient to assess the severity of his obstructive lung disease. He is know to Dr. Thompson. GI and DVT prophylaxis on Pepcid and heparin subcutaneously respectively. CODE STATUS: Alternative code per records.
--- NOTE | 2018-04-15 10:48 | P.PNIM ---
Subjective Interval history: Pt seen and examined for f/u of COPD exacerbation. AFVSS, maintaining sats on 4L O2. Reports he is feeling better and almost back to his baseline. Denies CP, abdominal pain, N/V. Ambulating. Tolerating PO. Still with mild dyspnea but overall improved. Physical Exam Vital signs: Vital Signs 04/14/18 11:51 04/14/18 12:00 04/14/18 16:00 Temperature 98.3 F 98 F Pulse Rate 104 H 90 92 H Respiratory Rate 18 20 20 Blood Pressure 136/72 128/69 Pulse Oximetry 96 96 04/14/18 16:09 04/14/18 20:00 04/14/18 21:48 Temperature 97.9 F Pulse Rate 93 H 104 H 98 H Respiratory Rate 12 20 24 Blood Pressure 145/69 H Pulse Oximetry 97 90 L 93 L 04/15/18 00:00 04/15/18 00:46 04/15/18 04:00 Temperature 98.1 F 97.5 F L Pulse Rate 98 H 98 H 89 Respiratory Rate 20 22 20 Blood Pressure 133/72 143/75 H Pulse Oximetry 97 93 L 04/15/18 04:19 04/15/18 08:00 04/15/18 08:45 Temperature Pulse Rate 86 96 H 95 H Respiratory Rate 20 Blood Pressure Pulse Oximetry 96 Intake & Output 04/14/18 04/15/18 04/15/18 18:59 06:59 18:59 Intake Total 340 / 340 890 / 890 100 / 100 Output Total 700 / 700 Balance 340 / 340 190 / 190 100 / 100 Weight 78.7 kg 79.6 kg Intake: IV 100 / 100 350 / 350 100 / 100 Azithromycin Inj 500 MG In NS 250 / 250 Inj 250 ML @ 250 mls/hr IV.SIG Q24H [facility] Rx#:[id number] Rocephin Inj 1,000 MG In NS Inj 100 / 100 100 / 100 100 / 100 100 ML @ 200 mls/hr IV.SIG Q12H [facility] Rx#:[id number] Oral 240 / 240 540 / 540 Output: Urine 700 / 700 Other: Date of Last Bowel Movement 04/12/18 04/12/18 # Bowel Movements 0 Narrative: GENERAL: WN, WD elderly male resting in bed in NAD. SKIN: Warm and dry. Scattered ecchymoses over extremities. HEENT: AT/NC. Pupils equal and round. MMM. HEART: RRR no m/r/g. LUNGS: Diminished breath sounds otherwise CTAB. ABDOMEN: +BS, soft, NT, ND. EXTREMITIES: No LE edema. Onychomycosis of toenails. NEURO: Awake and alert. Bilateral resting tremor. PSYCH: Appropriate mood and affect. Results - Labs CBC & Chem 7: 04/15/18 07:57 04/15/18 07:57 Laboratory Results - last 24 hr 04/15/18 04/15/18 07:57 07:57 WBC 7.9 RBC 3.95 L Hgb 12.0 L Hct 36.0 L MCV 91.0 MCH 30.3 MCHC 33.2 RDW 15.1 Plt Count 190 MPV 8.9 Sodium 139 Potassium 4.0 Chloride 100 Carbon Dioxide 34.0 H Anion Gap 5 BUN 22 H Creatinine 0.73 Estimated GFR Greater than 89 Random Glucose 145 H Calcium 8.3 L Microbiology 04/13/18 13:15 Sputum - Expectorated Sputum Gram Stain - Final 04/13/18 13:15 Sputum - Expectorated Sputum Sputum Culture - Preliminary Heavy growth normal respiratory eyal at 24 hours Assessment and Plan - Assessment (1) Respiratory failure with hypoxia and hypercapnia Code(s): J96.91 - Respiratory failure, unspecified with hypoxia; J96.92 - Respiratory failure, unspecified with hypercapnia Status: Acute (2) Acute exacerbation of chronic obstructive pulmonary disease (COPD) Code(s): J44.1 - Chronic obstructive pulmonary disease with (acute) exacerbation Status: Acute - Plan 73 year old male with O2-dependent COPD, Parkinson's, and neuropathy admitted on 04/12 for acute respiratory failure secondary to COPD exacerbation. 1. COPD exacerbation, acute hypoxemic/hypercapnic respiratory failure - ABG on admission with pH 7.26, PCO2 89, PO2 52, and bicarb 39 - CXR unremarkable - Decrease SoluMedrol to 40 mg IV Q12H - DuoNeb - Rocephin and Azithromycin, change to PO tomorrow - Continue Symbicort and Spiriva (was not on Spiriva at home) - Supplemental O2 and BiPAP PRN - Pulmonology following, appreciate reccs 2. Parkinson's disease - Continue home ropinirole 3. Neuropathy - Continue home gabapentin 4. HLD - Continue home statin GI prophylaxis: Pepcid given systemic steroids DVT prophylaxis: Heparin (1) Respiratory failure with hypoxia and hypercapnia Qualifiers: Chronicity: acute on chronic Qualified Code(s): J96.21 - Acute and chronic respiratory failure with hypoxia; J96.22 - Acute and chronic respiratory failure with hypercapnia
--- NOTE | 2018-04-15 14:22 | P.DCO ---
- Diagnosis (1) Respiratory failure with hypoxia and hypercapnia - Physical Therapy Order: Evaluate and treat, Improve ambulation, Strength and gait training - Home Health Nursing Order: Signs/symptoms of disease process, Nursing assessment with vital signs - Certification I have seen patient Pramod Solo on 04/15/18. My clinical findings support the need for the requested home health care services because: Patient has SOB, Deconditioned with increased weakness, High risk of falls I certify that my clinical findings support that this patient is homebound because: Hx COPD - exertion dyspnea/weakness, Unsteady gait/balance (1) Respiratory failure with hypoxia and hypercapnia Qualifiers: Chronicity: acute on chronic Qualified Code(s): J96.21 - Acute and chronic respiratory failure with hypoxia; J96.22 - Acute and chronic respiratory failure with hypercapnia
[2018-04-15] MEDS: Azithromycin Inj 500 MG in Sodium Chlor 0.9% Inj 250 ML IV.SIG SCH (18:32)
[2018-04-15] MEDS: Temazepam 15 MG Capsule PO PRN (22:10)
[2018-04-16] MEDS: Chlorhexidine Gluconate 2% 1 Pack (2 Cloths) TOPICAL SCH (04:39)
[2018-04-16] MEDS: Heparin - SQ 10,000 UNITS/ML Vial SQ SCH ×3 (06:09→21:56)
[2018-04-16] MEDS: guaiFENesin 600 MG ER Tablet PO SCH ×2 (09:54→20:19)
[2018-04-16] MEDS: Famotidine PF Inj 20 MG/2 ML Vial IV.PUSH SCH ×2 (09:54→20:19)
[2018-04-16] MEDS: MethylPREDNISolone Sod Succinate Inj 40 MG/ML Vial IV.PUSH SCH ×4 (09:55→21:56)
[2018-04-16] MEDS: Gabapentin 400 MG Capsule PO SCH ×2 (09:55→20:19)
[2018-04-16] MEDS: Budesonide-Formoterol 160/4.5 MCG 6 GM Inhaler INH SCH ×2 (09:56→20:20)
[2018-04-16] MEDS: Senna/Docusate Sodium 8.6/50 MG Tablet PO SCH ×2 (09:56→20:20)
[2018-04-16] MEDS: Tiotropium Bromide 18 MCG/ACT Inhaler INH SCH (09:57)
--- NOTE | 2018-04-16 13:35 | P.PNIM ---
Subjective Interval history: Pt seen and examined for f/u of COPD exacerbation. Pt clinically appears worse than yesterday. Today he is pursed lip breathing and using accessory muscles of respiration. His , present at the bedside, reports he started getting worse this morning. She was concerned because she looked at his feet and ankles and they were "black." She reports they are back to their normal color now. The patient endorses his breathing is worse than yesterday and he is coughing more. Cough is dry. He remains afebrile. Physical Exam Vital signs: Vital Signs 04/15/18 16:00 04/15/18 17:14 04/15/18 20:00 Temperature 97.7 F 98.1 F Pulse Rate 112 H 101 H 111 H Respiratory Rate 18 12 20 Blood Pressure 149/68 H 144/68 H Pulse Oximetry 93 L 93 L 04/15/18 20:37 04/16/18 00:00 04/16/18 01:26 Temperature 98.0 F Pulse Rate 100 H 87 108 H Respiratory Rate 16 20 16 Blood Pressure 140/70 Pulse Oximetry 93 L 04/16/18 03:27 04/16/18 04:00 04/16/18 08:00 Temperature 97.5 F L 98.0 F Pulse Rate 106 H 88 90 Respiratory Rate 18 18 17 Blood Pressure 129/67 147/88 H Pulse Oximetry 98 98 04/16/18 08:13 04/16/18 11:45 04/16/18 12:00 Temperature 97.8 F Pulse Rate 87 99 H 100 H Respiratory Rate 16 20 17 Blood Pressure 131/81 Pulse Oximetry 96 98 Intake & Output 04/15/18 04/16/18 04/16/18 18:59 06:59 18:59 Intake Total 580 / 580 920 / 920 Output Total 800 / 800 1150 / 1150 Balance -220 / -220 -230 / -230 Weight 79.3 kg Intake: IV 100 / 100 100 / 100 Rocephin Inj 1,000 MG In NS Inj 100 / 100 100 / 100 100 ML @ 200 mls/hr IV.SIG Q12H NAZIA Rx#:[id number] Oral 480 / 480 820 / 820 Output: Urine 800 / 800 1150 / 1150 Other: Date of Last Bowel Movement 04/12/18 04/15/18 # Bowel Movements 3 1 Narrative: GENERAL: WN, WD elderly sitting up in in bed obviously short of breath. SKIN: Warm and dry. Scattered ecchymoses over extremities. HEENT: AT/NC. Pupils equal and round. MMM. HEART: Tachycardic with a regular rhythm. LUNGS: Pursed lip breathing. Significantly diminished breath sounds with some end-expiratory wheezing at the bases. No appreciable crackles. ABDOMEN: +BS, soft, NT, ND. EXTREMITIES: Chronic venous stasis changes of feet/ankles. No LE edema. Onychomycosis of toenails. Feet are warm and well-perfused. 2+ pedal pulses NEURO: Awake and alert. Bilateral resting tremor. Results - Labs CBC & Chem 7: 04/15/18 07:57 04/15/18 07:57 Microbiology 04/13/18 13:15 Sputum - Expectorated Sputum Gram Stain - Final 04/13/18 13:15 Sputum - Expectorated Sputum Sputum Culture - Final Heavy growth normal respiratory eyal Assessment and Plan - Assessment (1) Respiratory failure with hypoxia and hypercapnia Code(s): J96.91 - Respiratory failure, unspecified with hypoxia; J96.92 - Respiratory failure, unspecified with hypercapnia Status: Acute (2) Physical deconditioning Code(s): R53.81 - Other malaise Status: Acute (3) Acute exacerbation of chronic obstructive pulmonary disease (COPD) Code(s): J44.1 - Chronic obstructive pulmonary disease with (acute) exacerbation Status: Acute - Plan 73 year old male with O2-dependent COPD, Parkinson's, and neuropathy admitted on 04/12 for acute respiratory failure secondary to COPD exacerbation. 1. COPD exacerbation, acute hypoxemic/hypercapnic respiratory failure - ABG on admission with pH 7.26, PCO2 89, PO2 52, and bicarb 39 - CXR unremarkable on admission - Increase SoluMedrol to 40 mg IV Q8H - DuoNeb - Continue Rocephin and Azithromycin - Continue Symbicort and Spiriva (was not on Spiriva at home) - Supplemental O2 and BiPAP PRN - Pulmonology following, appreciate reccs - Stat CXR and ABG given worsening shortness of breath 2. Parkinson's disease - Continue home ropinirole 3. Neuropathy - Continue home gabapentin 4. HLD - Continue home statin GI prophylaxis: Pepcid given systemic steroids DVT prophylaxis: Heparin Code Status: DNI Discussed Condition With: Patient and his Discharge Planning: Pending clinical improvement, patient with worsening shortness of breath today (1) Respiratory failure with hypoxia and hypercapnia Qualifiers: Chronicity: acute on chronic Qualified Code(s): J96.21 - Acute and chronic respiratory failure with hypoxia; J96.22 - Acute and chronic respiratory failure with hypercapnia
[2018-04-16 14:08] LABS: ABG Base Excess 5.7 mmol/L (-2-2); ABG PCO2 53 mmHg (38-42); ABG PO2 56 mmHg (61-120)
--- NOTE | 2018-04-16 14:10 | XR ---
EXAM DATE: 04/16/2018 2:05 PM EDT AGE/SEX: 73 years / Male INDICATIONS: Short of breath. CLINICAL DATA: This is the patient's initial encounter. Patient reports that signs and symptoms have been present for 3 days and indicates a pain score of 0/10. MEDICAL/SURGICAL HISTORY: . COPD None. COMPARISON: HPO, CHEST 1V SINGLE AP, 04/12/2018. . FINDINGS: Lungs are hyperinflated but otherwise clear. There is no evidence of acute airspace disease or conges tion. Heart and mediastinal structures are stable. Old healed fracture of the right clavicle noted. CONCLUSION: COPD No evidence of acute airspace disease or significant congestion. Electronically signed by: Sumit Rivera MD 04/16/2018 2:08 PM EDT
[2018-04-16 15:06] LABS: Hematocrit 39.5 % (39.0-51.0); Hemoglobin 12.9 gm/dL (13.0-17.0); Mean Corpuscular HGB Conc 32.6 % (32.0-36.0); Mean Corpuscular Hemoglobin 29.6 pg (27.0-34.0); Mean Corpuscular Volume 90.9 fL (80.0-100.0); Mean Platelet Volume 8.1 fL (7.0-11.0); Platelet Count 241 th/mm3 (150-450); Red Blood Count 4.35 mil/mm3 (4.50-5.90); Red Cell Distribution Width 15.3 % (11.6-17.2); White Blood Count 11.3 th/mm3 (4.0-11.0)
[2018-04-16 15:22] LABS: Anion Gap 6 meq/L (5-15); Blood Urea Nitrogen 21 mg/dL (7-18); Calcium 8.3 mg/dL (8.5-10.1); Carbon Dioxide 31.6 meq/L (21.0-32.0); Chloride 105 meq/L (98-107); Glomerular Filtration Rate Greater Than 89 mL/min (>89); Glucose,Random 127 mg/dL (74-106); Potassium 4.1 meq/L (3.5-5.1); Sodium 143 meq/L (136-145)
[2018-04-16] MEDS: Azithromycin Inj 500 MG in Sodium Chlor 0.9% Inj 250 ML IV.SIG SCH (18:34)
--- NOTE | 2018-04-16 18:35 | MB ---
cc: Obinna Thompson MD DATE: 04/16/2018 REASON FOR CONSULTATION: Respiratory distress and COPD. HISTORY OF PRESENT ILLNESS: This is a 72-year-old white male with a history of COPD on home oxygen at 4 liters who was admitted through the emergency room with progressive shortness of breath, wheezing and disorientation. The patient has a history of Parkinson's disease, peripheral neuropathy and hypertension. He was hypoxic, hypercapnic and thus was placed on BiPAP. The patient also was started on antibiotic therapy and IV Solu-Medrol and his O2 saturation did improve. He is presently now down to nasal cannula again. The patient denies chest pains. No hemoptysis. No fevers or chills. PAST MEDICAL HISTORY: Past history includes history of severe COPD with emphysema, chronic bronchitis, history of hypertension and was treated for pneumonia in the past. PAST SURGICAL HISTORY: No significant surgery. HABITS: The patient smoked a pack per day for over 40 years and then quit. No significant alcohol use. ALLERGIES: NONE LISTED. FAMILY HISTORY: Noncontributory. REVIEW OF SYSTEMS: The patient is dyspneic. He has leg swelling. He has joint pains. He has epigastric distress. He has no headaches, but has some dizziness and he has depression and anxiety. PHYSICAL EXAMINATION: GENERAL: This elderly averagely built white male was dyspneic and his face was plethoric. VITAL SIGNS: Blood pressure 130/60, pulse 88, respirations 20, temperature 97.2. HEENT: Head normocephalic. Pupils reactive. Tongue is moist. Throat is injected. Nasal mucosa edematous. NECK: Supple, no bruits. No thyroid enlargement. No lymphadenopathy. CHEST: Distant breath sounds with expiratory wheezes throughout both lung mesa, prolonged expirations. HEART: The heart sounds irregular S1 and S2 with no murmur. No S3. ABDOMEN: Soft, protuberant with no masses. No organomegaly. Bowel sounds are active. EXTREMITIES: Edema 1+ with pigmentation of the skin of the lower extremities and varicose veins and decreased peripheral pulses. Reflexes are 1+. NEUROLOGIC: No gross motor deficits noted. IMPRESSION: 1. Chronic obstructive pulmonary disease with acute exacerbation. 2. Hypercapnic, hypoxemic respiratory failure. 3. Emphysema with chronic bronchitis. 4. Hypertension. 5. Parkinson's disease. PLAN: The patient will be continued on O2 at 4 liters nasal cannula, Solu-Medrol 40 mg IV every 8 hours and Rocephin 1 gram IV daily and we will get a pulmonary function study at the bedside. The patient will be advised to give us sputum for culture and Gram stain. Symbicort 160/4.5 mcg 2 puffs twice daily was added and continue with prophylactic heparin 5000 units every 8 hours subcutaneous. Thank you, Dr. Gray, for this consultation. V. Abram Thompson MD VJD/KD , 06:06 PM , 06:18 PM
[2018-04-17] MEDS: MethylPREDNISolone Sod Succinate Inj 40 MG/ML Vial IV.PUSH SCH ×2 (05:19→08:07)
[2018-04-17] MEDS: Heparin - SQ 10,000 UNITS/ML Vial SQ SCH ×3 (05:19→23:00)
[2018-04-17] MEDS: Chlorhexidine Gluconate 2% 1 Pack (2 Cloths) TOPICAL SCH (05:20)
[2018-04-17] MEDS: guaiFENesin 600 MG ER Tablet PO SCH ×2 (08:07→20:23)
[2018-04-17] MEDS: Famotidine PF Inj 20 MG/2 ML Vial IV.PUSH SCH ×2 (08:07→20:24)
[2018-04-17] MEDS: Gabapentin 400 MG Capsule PO SCH ×2 (08:07→20:23)
[2018-04-17] MEDS: Senna/Docusate Sodium 8.6/50 MG Tablet PO SCH ×2 (08:08→20:24)
[2018-04-17] MEDS: Tiotropium Bromide 18 MCG/ACT Inhaler INH SCH (08:09)
[2018-04-17] MEDS: Budesonide-Formoterol 160/4.5 MCG 6 GM Inhaler INH SCH (08:09)
[2018-04-17 08:50] LABS: Hematocrit 37.7 % (39.0-51.0); Hemoglobin 12.4 gm/dL (13.0-17.0); Mean Corpuscular HGB Conc 32.9 % (32.0-36.0); Mean Corpuscular Hemoglobin 29.6 pg (27.0-34.0); Mean Corpuscular Volume 89.9 fL (80.0-100.0); Mean Platelet Volume 8.5 fL (7.0-11.0); Platelet Count 216 th/mm3 (150-450); Red Blood Count 4.19 mil/mm3 (4.50-5.90); White Blood Count 9.7 th/mm3 (4.0-11.0)
[2018-04-17 09:05] LABS: Anion Gap 7 meq/L (5-15); Blood Urea Nitrogen 22 mg/dL (7-18); Calcium 8.3 mg/dL (8.5-10.1); Carbon Dioxide 30.5 meq/L (21.0-32.0); Chloride 103 meq/L (98-107); Glomerular Filtration Rate Greater Than 89 mL/min (>89); Glucose,Random 117 mg/dL (74-106); Potassium 4.1 meq/L (3.5-5.1); Sodium 140 meq/L (136-145)
--- NOTE | 2018-04-17 12:13 | P.PN ---
Subjective Interval history: Alert and feels better. On N/C at 4L. Less wheezing and cough. Physical Exam Vital signs: Vital Signs 04/16/18 15:50 04/16/18 16:00 04/16/18 20:00 Temperature 98.2 F 97.6 F Pulse Rate 116 H 100 H 96 H Respiratory Rate 22 17 18 Blood Pressure 142/79 H 145/70 H Pulse Oximetry 91 L 93 L 04/16/18 20:29 04/17/18 00:00 04/17/18 00:09 Temperature Pulse Rate 104 H 93 H 89 Respiratory Rate 18 24 Blood Pressure Pulse Oximetry 91 L 04/17/18 02:00 04/17/18 03:38 04/17/18 04:00 Temperature 97.8 F 97.9 F Pulse Rate 91 H 88 86 Respiratory Rate 16 24 16 Blood Pressure 153/77 H Pulse Oximetry 94 L 95 04/17/18 08:00 04/17/18 08:02 04/17/18 11:38 Temperature 97.6 F Pulse Rate 95 H 86 103 H Respiratory Rate 20 17 17 Blood Pressure 165/77 H Pulse Oximetry 93 L 95 Intake & Output 04/16/18 04/17/18 04/17/18 18:59 06:59 18:59 Intake Total 820 / 820 1220 / 1220 Output Total 800 / 800 1600 / 1600 Balance -380 / -380 Weight 79.2 kg Intake: IV 100 / 100 100 / 100 Rocephin Inj 1,000 MG In NS Inj 100 / 100 100 / 100 100 ML @ 200 mls/hr IV.SIG Q12H [facility] Rx#:[id number] Oral 720 / 720 1120 / 1120 Output: Urine 800 / 800 1600 / 1600 Other: Date of Last Bowel Movement 04/15/18 04/15/18 # Bowel Movements 0 Narrative: GENERAL:Elderly W/M short of breath. SKIN: Warm and dry. Scattered ecchymoses over extremities. HEENT: . Pupils equal and round. Throat clear. HEART: Tachycardic with a regular rhythm No Murmur. LUNGS: Significantly diminished breath sounds with some end-expiratory scattered. No crackles. ABDOMEN: +BS, soft, NT, ND. EXTREMITIES: Chronic venous stasis changes of feet/ankles. No LE edema. Onychomycosis of toenails. Feet are warm and well-perfused.1+ pedal pulses NEURO: Awake and alert. Bilateral resting tremor. Results - Labs CBC & Chem 7: 04/17/18 08:10 04/17/18 08:10 Laboratory Results - last 24 hr 04/16/18 04/16/18 04/16/18 13:57 14:55 14:55 WBC 11.3 H RBC 4.35 L Hgb 12.9 L Hct 39.5 MCV 90.9 MCH 29.6 MCHC 32.6 RDW 15.3 Plt Count 241 MPV 8.1 Puncture Site Right radial Patient Temperature 98.6 O2 Saturation 87 L* ABG pH 7.38 ABG pCO2 53 H* ABG pO2 56 L* ABG HCO3 31 H ABG O2 Content 16.1 ABG Base Excess 5.7 H ABG Methemoglobin 1.0 Phillip Test Present Hemoglobin 13.2 Carboxyhemoglobin 1.5 O2 Delivery Device Nasal cannula Liter Flow 3.00 Inspired O2 21 Critical Value Yes Sodium 143 Potassium 4.1 Chloride 105 Carbon Dioxide 31.6 Anion Gap 6 BUN 21 H Creatinine 0.78 Estimated GFR Greater than 89 Random Glucose 127 H Calcium 8.3 L 04/17/18 04/17/18 08:10 08:10 WBC 9.7 RBC 4.19 L Hgb 12.4 L Hct 37.7 L MCV 89.9 MCH 29.6 MCHC 32.9 RDW 15.0 Plt Count 216 MPV 8.5 Puncture Site Patient Temperature O2 Saturation ABG pH ABG pCO2 ABG pO2 ABG HCO3 ABG O2 Content ABG Base Excess ABG Methemoglobin Phillip Test Hemoglobin Carboxyhemoglobin O2 Delivery Device Liter Flow Inspired O2 Critical Value Sodium 140 Potassium 4.1 Chloride 103 Carbon Dioxide 30.5 Anion Gap 7 BUN 22 H Creatinine 0.69 Estimated GFR Greater than 89 Random Glucose 117 H Calcium 8.3 L - Imaging Impressions Chest X-Ray 04/16/18 13:35 CONCLUSION: COPD No evidence of acute airspace disease or significant congestion. Assessment and Plan - Assessment (1) Anxiety Code(s): F41.9 - Anxiety disorder, unspecified Status: Acute (2) Respiratory failure with hypoxia and hypercapnia Code(s): J96.91 - Respiratory failure, unspecified with hypoxia; J96.92 - Respiratory failure, unspecified with hypercapnia Status: Acute (3) Acute exacerbation of chronic obstructive pulmonary disease (COPD) Code(s): J44.1 - Chronic obstructive pulmonary disease with (acute) exacerbation Status: Acute (4) Physical deconditioning Code(s): R53.81 - Other malaise Status: Acute - Plan 1. Continue O2 N/C 3 L. 2. Continue antibiotics , Rocephin /Zithro. 3. Nebs q4h , Duoneb 4. Symbicort 160/ 4.5 Mcg , 2 puffs BID 5. PFT with broncho 6. Continue Solumedrol 40 mg BID 6. Up with help. (2) Respiratory failure with hypoxia and hypercapnia Qualifiers: Chronicity: acute on chronic Qualified Code(s): J96.21 - Acute and chronic respiratory failure with hypoxia; J96.22 - Acute and chronic respiratory failure with hypercapnia
[2018-04-17] MEDS: MethylPREDNISolone Sod Succinate Inj 125 MG/2 ML Vial IV.PUSH SCH ×2 (15:52→23:00)
--- NOTE | 2018-04-17 17:00 | P.PN ---
Subjective Interval history: Patient is interested in going home, but on exam he is not ready and he is willing to accept that. Physical Exam Vital signs: Vital Signs 04/16/18 20:00 04/16/18 20:29 04/17/18 00:00 Temperature 97.6 F Pulse Rate 96 H 104 H 93 H Respiratory Rate 18 18 Blood Pressure 145/70 H Pulse Oximetry 93 L 91 L 04/17/18 00:09 04/17/18 02:00 04/17/18 03:38 Temperature 97.8 F Pulse Rate 89 91 H 88 Respiratory Rate 24 16 24 Blood Pressure 153/77 H Pulse Oximetry 94 L 04/17/18 04:00 04/17/18 08:00 04/17/18 08:02 Temperature 97.9 F 97.6 F Pulse Rate 86 91 H 86 Respiratory Rate 16 20 17 Blood Pressure 165/77 H Pulse Oximetry 95 93 L 95 04/17/18 11:38 04/17/18 12:00 Temperature 98.0 F Pulse Rate 103 H 113 H Respiratory Rate 17 20 Blood Pressure 150/72 H Pulse Oximetry 93 L Intake & Output 04/16/18 04/17/18 04/17/18 18:59 06:59 18:59 Intake Total 820 / 820 1220 / 1220 Output Total 800 / 800 1600 / 1600 Balance 20 / -380 / -380 Weight 79.2 kg Intake: IV 100 / 100 100 / 100 Rocephin Inj 1,000 MG In NS Inj 100 / 100 100 / 100 100 ML @ 200 mls/hr IV.SIG Q12H [facility] Rx#:[id number] Oral 720 / 720 1120 / 1120 Output: Urine 800 / 800 1600 / 1600 Other: Date of Last Bowel Movement 04/15/18 04/15/18 04/15/18 # Bowel Movements 0 Narrative: GENERAL: AAOx3, no acute distress, generally weak SKIN: Warm and dry. No rashes HEAD: Atruamtic, normocephalic. EYES: No scleral icterus. No injection or drainage. ENT: Moist mucous membranes, patent nares, no erythema of oropharynx. NECK: Supple, trachea midline. No JVD or lymphadenopathy. Normal thyroid. CARDIOVASCULAR: Regular rate and rhythm. No murmurs, gallops, or rubs. RESPIRATORY: Poor air exchange, scattered wheezes, bases atelectatic.. No accessory muscle use. GASTROINTESTINAL: Abdomen soft, non-tender, nondistended, normal active bowel sounds MUSCULOSKELETAL: No cyanosis, or edema. NEURO: CN II-XII grossly intact, no focal deficits, no slurring of speech Results - Labs CBC & Chem 7: 04/17/18 08:10 04/17/18 08:10 Laboratory Results - last 24 hr 04/17/18 04/17/18 08:10 08:10 WBC 9.7 RBC 4.19 L Hgb 12.4 L Hct 37.7 L MCV 89.9 MCH 29.6 MCHC 32.9 RDW 15.0 Plt Count 216 MPV 8.5 Sodium 140 Potassium 4.1 Chloride 103 Carbon Dioxide 30.5 Anion Gap 7 BUN 22 H Creatinine 0.69 Estimated GFR Greater than 89 Random Glucose 117 H Calcium 8.3 L Assessment and Plan - Assessment (1) Respiratory failure with hypoxia and hypercapnia Code(s): J96.91 - Respiratory failure, unspecified with hypoxia; J96.92 - Respiratory failure, unspecified with hypercapnia Status: Acute (2) Physical deconditioning Code(s): R53.81 - Other malaise Status: Acute (3) Acute exacerbation of chronic obstructive pulmonary disease (COPD) Code(s): J44.1 - Chronic obstructive pulmonary disease with (acute) exacerbation Status: Acute - Plan 73 year old male with O2-dependent COPD, Parkinson's, and neuropathy admitted on 04/12 for acute respiratory failure secondary to COPD exacerbation. COPD exacerbation, acute hypoxemic/hypercapnic respiratory failure ABG on admission with pH 7.26, PCO2 89, PO2 52, and bicarb 39 Increase Solu-Medrol again to 60 mg every 8 hours Continue duo nebs, Symbicort, Spiriva, supplemental oxygen Budesonide nebs added Continue coverage with azithromycin and Rocephin Continue BiPAP as needed Appreciate pulmonology consult Parkinson's disease Continue home ropinirole Neuropathy Continue home gabapentin DVT prophylaxis Heparin (1) Respiratory failure with hypoxia and hypercapnia Qualifiers: Chronicity: acute on chronic Qualified Code(s): J96.21 - Acute and chronic respiratory failure with hypoxia; J96.22 - Acute and chronic respiratory failure with hypercapnia
[2018-04-17] MEDS: Azithromycin Inj 500 MG in Sodium Chlor 0.9% Inj 250 ML IV.SIG SCH (18:27)
[2018-04-18] MEDS: Chlorhexidine Gluconate 2% 1 Pack (2 Cloths) TOPICAL SCH (03:29)
[2018-04-18] MEDS: Heparin - SQ 10,000 UNITS/ML Vial SQ SCH ×3 (05:12→23:28)
[2018-04-18] MEDS: Famotidine PF Inj 20 MG/2 ML Vial IV.PUSH SCH ×2 (09:22→20:34)
[2018-04-18] MEDS: guaiFENesin 600 MG ER Tablet PO SCH ×2 (09:22→20:33)
[2018-04-18] MEDS: MethylPREDNISolone Sod Succinate Inj 125 MG/2 ML Vial IV.PUSH SCH ×3 (09:22→23:28)
[2018-04-18] MEDS: Senna/Docusate Sodium 8.6/50 MG Tablet PO SCH ×2 (09:24→20:33)
[2018-04-18] MEDS: Gabapentin 400 MG Capsule PO SCH ×2 (09:39→20:34)
[2018-04-18] MEDS: Tiotropium Bromide 18 MCG/ACT Inhaler INH SCH (11:07)
--- NOTE | 2018-04-18 13:02 | P.PN ---
Subjective Interval history: Better today. On O2 3 L. Less wheezing. Physical Exam Vital signs: Vital Signs 04/17/18 16:00 04/17/18 18:03 04/17/18 19:20 Temperature 97.8 F Pulse Rate 97 H 99 H 100 H Respiratory Rate 20 27 H 18 Blood Pressure 154/77 H Pulse Oximetry 97 95 04/17/18 20:00 04/18/18 00:00 04/18/18 04:00 Temperature 97.9 F 97.8 F 97.4 F L Pulse Rate 99 H 89 92 H Respiratory Rate 20 20 20 Blood Pressure 142/70 H 156/84 H 145/80 H Pulse Oximetry 95 95 96 04/18/18 07:00 04/18/18 08:00 04/18/18 12:07 Temperature 97.3 F L Pulse Rate 95 H 88 86 Respiratory Rate 20 20 22 Blood Pressure 158/80 H Pulse Oximetry 95 Intake & Output 04/17/18 04/18/18 04/18/18 18:59 06:59 18:59 Intake Total 820 / 820 340 / 340 Output Total 200 / 200 400 / 400 Balance 620 / 620 -60 / -60 Weight 80.8 kg Intake: IV 100 / 100 100 / 100 Rocephin Inj 1,000 MG In NS Inj 100 / 100 100 / 100 100 ML @ 200 mls/hr IV.SIG Q12H [facility]ZIA Rx#:[id number] Oral 720 / 720 240 / 240 Output: Urine 200 / 200 400 / 400 Other: # Voids 1 Date of Last Bowel Movement 04/15/18 04/17/18 # Bowel Movements 1 0 Narrative: GENERAL: AAOx3, no acute distress,On O2 . SKIN: Warm and dry. No rashes HEAD: Atraumatic, normocephalic. JERSON EYES: No scleral icterus. No injection or drainage. ENT: Moist mucous membranes, patent nares, no erythema of oropharynx. NECK: Supple, trachea midline. No JVD or lymphadenopathy. Normal thyroid. CARDIOVASCULAR: Regular rate and rhythm. No murmurs, gallops, or rubs. RESPIRATORY: Poor air exchange, scattered wheezes, with accessory muscle use. GASTROINTESTINAL: Abdomen soft, non-tender, nondistended, normal active bowel sounds MUSCULOSKELETAL: No cyanosis, or edema. NEURO: CN II-XII grossly intact, no focal deficit. Results - Labs CBC & Chem 7: 04/17/18 08:10 04/17/18 08:10 Assessment and Plan - Assessment (1) Anxiety Code(s): F41.9 - Anxiety disorder, unspecified Status: Acute (2) Respiratory failure with hypoxia and hypercapnia Code(s): J96.91 - Respiratory failure, unspecified with hypoxia; J96.92 - Respiratory failure, unspecified with hypercapnia Status: Acute (3) Acute exacerbation of chronic obstructive pulmonary disease (COPD) Code(s): J44.1 - Chronic obstructive pulmonary disease with (acute) exacerbation Status: Acute (4) Physical deconditioning Code(s): R53.81 - Other malaise Status: Acute - Plan 1. Continue O2 N/C 3 L. 2. Continue antibiotics , Rocephin 3. Nebs q4h , Duoneb 4. Symbicort 160/ 4.5 Mcg , 2 puffs BID 5. Zithromax 500 mg PO daily X3 6. Continue Solumedrol 60 mg Q8H and taper in am. 6. Up with help. 7. Rehab placement (2) Respiratory failure with hypoxia and hypercapnia Qualifiers: Chronicity: acute on chronic Qualified Code(s): J96.21 - Acute and chronic respiratory failure with hypoxia; J96.22 - Acute and chronic respiratory failure with hypercapnia
--- NOTE | 2018-04-18 15:26 | P.PN ---
Subjective Interval history: Patient reported an episode of acute onset of dyspnea this morning and was unable to get albuterol nebs on a as needed basis due to my order of scheduled nebs. I assured him I would fix this. Other than that he overall is breathing easier and is happy with this progress. He understands that he will be going to a rehab center. Physical Exam Vital signs: Vital Signs 04/17/18 16:00 04/17/18 18:03 04/17/18 19:20 Temperature 97.8 F Pulse Rate 97 H 99 H 100 H Respiratory Rate 20 27 H 18 Blood Pressure 154/77 H Pulse Oximetry 97 95 04/17/18 20:00 04/18/18 00:00 04/18/18 04:00 Temperature 97.9 F 97.8 F 97.4 F L Pulse Rate 99 H 89 92 H Respiratory Rate 20 20 20 Blood Pressure 142/70 H 156/84 H 145/80 H Pulse Oximetry 95 95 96 04/18/18 07:00 04/18/18 08:00 04/18/18 12:00 Temperature 97.3 F L 97.8 F Pulse Rate 95 H 88 107 H Respiratory Rate 20 20 20 Blood Pressure 158/80 H 157/77 H Pulse Oximetry 95 93 L 04/18/18 12:07 Temperature Pulse Rate 86 Respiratory Rate 22 Blood Pressure Pulse Oximetry Intake & Output 04/17/18 04/18/18 04/18/18 18:59 06:59 18:59 Intake Total 820 / 820 340 / 340 Output Total 200 / 200 400 / 400 Balance 620 / 620 -60 / -60 Weight 80.8 kg Intake: IV 100 / 100 100 / 100 Rocephin Inj 1,000 MG In NS Inj 100 / 100 100 / 100 100 ML @ 200 mls/hr IV.SIG Q12H NAZIA Rx#:[id number] Oral 720 / 720 240 / 240 Output: Urine 200 / 200 400 / 400 Other: # Voids 1 Date of Last Bowel Movement 04/15/18 04/17/18 04/17/18 # Bowel Movements 1 0 Narrative: GENERAL: AAOx3, no acute distress,On O2 . SKIN: Warm and dry. No rashes HEAD: Atraumatic, normocephalic. JERSON EYES: No scleral icterus. No injection or drainage. ENT: Moist mucous membranes, patent nares, no erythema of oropharynx. NECK: Supple, trachea midline. No JVD or lymphadenopathy. Normal thyroid. CARDIOVASCULAR: Regular rate and rhythm. No murmurs, gallops, or rubs. RESPIRATORY: Improved air exchange, scattered wheezes, minimal accessory muscle use. GASTROINTESTINAL: Abdomen soft, non-tender, nondistended, normal active bowel sounds MUSCULOSKELETAL: No cyanosis, or edema. NEURO: CN II-XII grossly intact, no focal deficit. Resting tremor from Parkinson's Results - Labs CBC & Chem 7: 04/17/18 08:10 04/17/18 08:10 Assessment and Plan - Assessment (1) Respiratory failure with hypoxia and hypercapnia Code(s): J96.91 - Respiratory failure, unspecified with hypoxia; J96.92 - Respiratory failure, unspecified with hypercapnia Status: Acute (2) Physical deconditioning Code(s): R53.81 - Other malaise Status: Acute (3) Acute exacerbation of chronic obstructive pulmonary disease (COPD) Code(s): J44.1 - Chronic obstructive pulmonary disease with (acute) exacerbation Status: Acute - Plan 73 year old male with O2-dependent COPD, Parkinson's, and neuropathy admitted on 04/12 for acute respiratory failure secondary to COPD exacerbation. COPD exacerbation, acute hypoxemic/hypercapnic respiratory failure ABG on admission with pH 7.26, PCO2 89, PO2 52, and bicarb 39 Continue Solu-Medrol 60 mg every 8 hours today, will attempt to wean back tomorrow Continue duo nebs, Symbicort, Spiriva, supplemental oxygen, budesonide nebs Continue coverage with azithromycin and Rocephin Continue BiPAP as needed Appreciate pulmonology consult Parkinson's disease Continue home ropinirole Neuropathy Continue home gabapentin DVT prophylaxis Heparin (1) Respiratory failure with hypoxia and hypercapnia Qualifiers: Chronicity: acute on chronic Qualified Code(s): J96.21 - Acute and chronic respiratory failure with hypoxia; J96.22 - Acute and chronic respiratory failure with hypercapnia
[2018-04-19] MEDS: Heparin - SQ 10,000 UNITS/ML Vial SQ SCH ×2 (05:17→13:12)
[2018-04-19 07:53] LABS: Hemoglobin 12.4 gm/dL (13.0-17.0); Mean Corpuscular HGB Conc 33.6 % (32.0-36.0); Mean Corpuscular Hemoglobin 30.3 pg (27.0-34.0); Mean Corpuscular Volume 90.2 fL (80.0-100.0); Mean Platelet Volume 8.5 fL (7.0-11.0); Platelet Count 213 th/mm3 (150-450); White Blood Count 10.8 th/mm3 (4.0-11.0)
[2018-04-19 08:19] LABS: Anion Gap 8 meq/L (5-15); Blood Urea Nitrogen 25 mg/dL (7-18); Calcium 8.2 mg/dL (8.5-10.1); Carbon Dioxide 31.4 meq/L (21.0-32.0); Chloride 99 meq/L (98-107); Glomerular Filtration Rate Greater Than 89 mL/min (>89); Potassium 4.3 meq/L (3.5-5.1); Sodium 138 meq/L (136-145)
[2018-04-19 08:20] LABS: Glucose,Random 117 mg/dL (74-106)
[2018-04-19] MEDS: MethylPREDNISolone Sod Succinate Inj 125 MG/2 ML Vial IV.PUSH SCH (10:16)
[2018-04-19] MEDS: Senna/Docusate Sodium 8.6/50 MG Tablet PO SCH ×2 (10:17→20:08)
[2018-04-19] MEDS: Famotidine PF Inj 20 MG/2 ML Vial IV.PUSH SCH ×2 (10:18→20:09)
[2018-04-19] MEDS: Azithromycin 250 MG Tablet PO SCH (10:18)
[2018-04-19] MEDS: guaiFENesin 600 MG ER Tablet PO SCH ×2 (10:18→20:08)
[2018-04-19] MEDS: Gabapentin 400 MG Capsule PO SCH ×2 (10:18→20:08)
[2018-04-19] MEDS: Tiotropium Bromide 18 MCG/ACT Inhaler INH SCH (10:18)
--- NOTE | 2018-04-19 12:41 | P.PN ---
Subjective Interval history: He is still SOB. On O2 3 L. Needs rehab. Physical Exam Vital signs: Vital Signs 04/18/18 16:00 04/18/18 19:26 04/18/18 19:27 Temperature 97.8 F Pulse Rate 93 H 95 H Respiratory Rate 20 22 Blood Pressure 153/82 H Pulse Oximetry 95 94 L 04/18/18 20:00 04/19/18 00:00 04/19/18 00:43 Temperature 98.1 F 98.3 F Pulse Rate 86 84 85 Respiratory Rate 20 20 19 Blood Pressure 151/80 H 138/75 Pulse Oximetry 94 L 98 96 04/19/18 04:00 04/19/18 04:39 04/19/18 08:19 Temperature 98 F Pulse Rate 85 81 89 Respiratory Rate 20 18 16 Blood Pressure 153/81 H Pulse Oximetry 97 97 95 Intake & Output 04/18/18 04/19/18 04/19/18 18:59 06:59 18:59 Intake Total 940 / 940 220 / 220 Output Total 1325 / 1325 250 / 250 Balance -385 / -385 -30 / -30 Weight 79.8 kg Intake: IV 100 / 100 100 / 100 Rocephin Inj 1,000 MG In NS Inj 100 / 100 100 / 100 100 ML @ 200 mls/hr IV.SIG Q12H [facility] Rx#:[id number] Oral 840 / 840 120 / 120 Output: Urine 1325 / 1325 250 / 250 Other: # Voids 1 Date of Last Bowel Movement 04/17/18 04/17/18 # Bowel Movements 1 0 Narrative: GENERAL: AAOx3, no acute distress,On O2 . SKIN: Warm and dry. No rashes HEAD: Atraumatic, normocephalic. JERSON EYES: No scleral icterus. No injection or drainage. ENT: Moist mucous membranes, patent nares, no erythema of oropharynx. NECK: Supple, trachea midline. No JVD or lymphadenopathy. Normal thyroid. CARDIOVASCULAR: Regular rate and rhythm. No murmurs, gallops, or rubs. RESPIRATORY: Poor air exchange, Bilateral wheezes, with accessory muscle use. GASTROINTESTINAL: Abdomen soft, non-tender, nondistended, normal active bowel sounds MUSCULOSKELETAL: No cyanosis, or edema. NEURO: CN II-XII grossly intact, no focal deficit. Results - Labs CBC & Chem 7: 04/19/18 06:35 04/19/18 06:35 Laboratory Results - last 24 hr 04/19/18 04/19/18 06:35 06:35 WBC 10.8 RBC 4.10 L Hgb 12.4 L Hct 37.0 L MCV 90.2 MCH 30.3 MCHC 33.6 RDW 15.0 Plt Count 213 MPV 8.5 Sodium 138 Potassium 4.3 Chloride 99 Carbon Dioxide 31.4 Anion Gap 8 BUN 25 H Creatinine 0.55 L Estimated GFR Greater than 89 Random Glucose 117 H Calcium 8.2 L Assessment and Plan - Assessment (1) Anxiety Code(s): F41.9 - Anxiety disorder, unspecified Status: Acute (2) Respiratory failure with hypoxia and hypercapnia Code(s): J96.91 - Respiratory failure, unspecified with hypoxia; J96.92 - Respiratory failure, unspecified with hypercapnia Status: Acute (3) Acute exacerbation of chronic obstructive pulmonary disease (COPD) Code(s): J44.1 - Chronic obstructive pulmonary disease with (acute) exacerbation Status: Acute (4) Physical deconditioning Code(s): R53.81 - Other malaise Status: Acute - Plan 1. Continue O2 N/C 3 L. 2. Continue antibiotics , Rocephin and switch to PO ceftin in am 3. Nebs q4h , Duoneb 4. Symbicort 160/ 4.5 Mcg , 2 puffs BID 5. Zithromax 500 mg PO daily X2 6. Solumedrol 40 mg Q8H and taper in am. 6. Up with help. 7. Rehab placement (2) Respiratory failure with hypoxia and hypercapnia Qualifiers: Chronicity: acute on chronic Qualified Code(s): J96.21 - Acute and chronic respiratory failure with hypoxia; J96.22 - Acute and chronic respiratory failure with hypercapnia
[2018-04-19] MEDS ORDERED: MethylPREDNISolone Sod Succinate Inj 40 MG/ML Vial IV.PUSH SCH (14:00)
--- NOTE | 2018-04-19 17:14 | P.PN ---
Subjective Interval history: Patient is dyspneic at baseline. He states even at home he has good days and bad days regarding his breathing. He does not wish to go home, feels more comfortable going to rehab. Still on high doses of Solu-Medrol, will attempt to wean planning for discharge. Physical Exam Vital signs: Vital Signs 04/18/18 19:26 04/18/18 19:27 04/18/18 20:00 Temperature 98.1 F Pulse Rate 95 H 86 Respiratory Rate 22 20 Blood Pressure 151/80 H Pulse Oximetry 94 L 94 L 04/19/18 00:00 04/19/18 00:43 04/19/18 04:00 Temperature 98.3 F 98 F Pulse Rate 84 85 85 Respiratory Rate 20 19 20 Blood Pressure 138/75 153/81 H Pulse Oximetry 98 96 97 04/19/18 04:39 04/19/18 08:00 04/19/18 08:19 Temperature 98.4 F Pulse Rate 81 90 89 Respiratory Rate 18 18 16 Blood Pressure 147/72 H Pulse Oximetry 97 96 95 04/19/18 12:00 04/19/18 14:02 Temperature 98.3 F Pulse Rate 97 H 111 H Respiratory Rate 18 24 Blood Pressure 133/68 Pulse Oximetry 95 Intake & Output 04/18/18 04/19/18 04/19/18 18:59 06:59 18:59 Intake Total 940 / 940 220 / 220 Output Total 1325 / 1325 250 / 250 Balance -385 / -385 -30 / -30 Weight 79.8 kg Intake: IV 100 / 100 100 / 100 Rocephin Inj 1,000 MG In NS Inj 100 / 100 100 / 100 100 ML @ 200 mls/hr IV.SIG Q12H [facility] Rx#:[id number] Oral 840 / 840 120 / 120 Output: Urine 1325 / 1325 250 / 250 Other: # Voids 1 Date of Last Bowel Movement 04/17/18 04/17/18 # Bowel Movements 1 0 Narrative: GENERAL: AAOx3, no acute distress,On O2 . SKIN: Warm and dry. No rashes HEAD: Atraumatic, normocephalic. JERSON EYES: No scleral icterus. No injection or drainage. ENT: Moist mucous membranes, patent nares, no erythema of oropharynx. NECK: Supple, trachea midline. No JVD or lymphadenopathy. Normal thyroid. CARDIOVASCULAR: Regular rate and rhythm. No murmurs, gallops, or rubs. RESPIRATORY: Improved air exchange, but still tachypneic. bilateral wheezes, with accessory muscle use. GASTROINTESTINAL: Abdomen soft, non-tender, nondistended, normal active bowel sounds MUSCULOSKELETAL: No cyanosis, or edema. NEURO: CN II-XII grossly intact, no focal deficit. Results - Labs CBC & Chem 7: 04/19/18 06:35 04/19/18 06:35 Laboratory Results - last 24 hr 04/19/18 04/19/18 06:35 06:35 WBC 10.8 RBC 4.10 L Hgb 12.4 L Hct 37.0 L MCV 90.2 MCH 30.3 MCHC 33.6 RDW 15.0 Plt Count 213 MPV 8.5 Sodium 138 Potassium 4.3 Chloride 99 Carbon Dioxide 31.4 Anion Gap 8 BUN 25 H Creatinine 0.55 L Estimated GFR Greater than 89 Random Glucose 117 H Calcium 8.2 L Assessment and Plan - Assessment (1) Respiratory failure with hypoxia and hypercapnia Code(s): J96.91 - Respiratory failure, unspecified with hypoxia; J96.92 - Respiratory failure, unspecified with hypercapnia Status: Acute (2) Physical deconditioning Code(s): R53.81 - Other malaise Status: Acute (3) Acute exacerbation of chronic obstructive pulmonary disease (COPD) Code(s): J44.1 - Chronic obstructive pulmonary disease with (acute) exacerbation Status: Acute - Plan 73 year old male with O2-dependent COPD, Parkinson's, and neuropathy admitted on 04/12 for acute respiratory failure secondary to COPD exacerbation. COPD exacerbation, acute hypoxemic/hypercapnic respiratory failure ABG on admission with pH 7.26, PCO2 89, PO2 52, and bicarb 39 Attempt to wean from Solu-Medrol today, begin prednisone 50 mg tomorrow, taper Continue duo nebs, Symbicort, Spiriva, supplemental oxygen, budesonide nebs Continue coverage with azithromycin and Rocephin Continue BiPAP as needed Appreciate pulmonology consult Parkinson's disease Continue home ropinirole Neuropathy Continue home gabapentin DVT prophylaxis Heparin Discharge planning Patient tolerates steroid wean without pulmonary worsening may be ready for rehab discharge (1) Respiratory failure with hypoxia and hypercapnia Qualifiers: Chronicity: acute on chronic Qualified Code(s): J96.21 - Acute and chronic respiratory failure with hypoxia; J96.22 - Acute and chronic respiratory failure with hypercapnia
[2018-04-20] MEDS: Heparin - SQ 10,000 UNITS/ML Vial SQ SCH ×4 (00:17→21:02)
[2018-04-20] MEDS: Azithromycin 250 MG Tablet PO SCH (09:03)
[2018-04-20] MEDS: Famotidine PF Inj 20 MG/2 ML Vial IV.PUSH SCH ×2 (09:04→20:52)
[2018-04-20] MEDS: Gabapentin 400 MG Capsule PO SCH ×2 (09:04→20:51)
[2018-04-20] MEDS: Senna/Docusate Sodium 8.6/50 MG Tablet PO SCH ×2 (09:04→20:51)
[2018-04-20] MEDS: guaiFENesin 600 MG ER Tablet PO SCH ×2 (09:04→20:51)
[2018-04-20] MEDS: Tiotropium Bromide 18 MCG/ACT Inhaler INH SCH (12:44)
--- NOTE | 2018-04-20 15:08 | P.PN ---
Subjective Interval history: 73-year-old male with advanced COPD admitted for respiratory failure. He has not done well today with weaning from Solu-Medrol. He is tachypneic slightly hypoxic on p.o. prednisone alone. Physical Exam Vital signs: Vital Signs 04/19/18 16:00 04/19/18 20:00 04/19/18 20:22 Temperature 97.9 F 98.6 F Pulse Rate 120 H 98 H 106 H Respiratory Rate 18 18 18 Blood Pressure 160/80 H 128/75 Pulse Oximetry 95 96 94 L 04/20/18 00:00 04/20/18 00:43 04/20/18 04:00 Temperature 98.1 F 98.2 F Pulse Rate 90 93 H 103 H Respiratory Rate 18 17 20 Blood Pressure 126/63 138/72 Pulse Oximetry 97 94 L 04/20/18 08:00 04/20/18 08:54 04/20/18 12:00 Temperature 98.1 F 98.0 F Pulse Rate 83 87 101 H Respiratory Rate 20 12 20 Blood Pressure 146/80 H 134/67 Pulse Oximetry 94 L 98 93 L 04/20/18 13:30 Temperature Pulse Rate 98 H Respiratory Rate 16 Blood Pressure Pulse Oximetry 94 L Intake & Output 04/19/18 04/20/18 04/20/18 18:59 06:59 18:59 Intake Total 100 / 100 240 / 240 Output Total 400 / 400 Balance 100 / 100 -160 / -160 Weight 81.2 kg Intake: IV 100 / 100 Rocephin Inj 1,000 MG In NS Inj 100 / 100 100 ML @ 200 mls/hr IV.SIG Q12H [facility] Rx#:[id number] Oral 240 / 240 Output: Urine 400 / 400 Other: Date of Last Bowel Movement 04/19/18 04/19/18 # Bowel Movements 0 Narrative: GENERAL: AAOx3, no acute distress,On O2 . SKIN: Warm and dry. No rashes HEAD: Atraumatic, normocephalic. JERSON EYES: No scleral icterus. No injection or drainage. ENT: Moist mucous membranes, patent nares, no erythema of oropharynx. NECK: Supple, trachea midline. No JVD or lymphadenopathy. Normal thyroid. CARDIOVASCULAR: Regular rate and rhythm. No murmurs, gallops, or rubs. RESPIRATORY: Stable air exchange, but still tachypneic. bilateral wheezes, with accessory muscle use. GASTROINTESTINAL: Abdomen soft, non-tender, nondistended, normal active bowel sounds MUSCULOSKELETAL: No cyanosis, or edema. NEURO: CN II-XII grossly intact, no focal deficit. Results - Labs CBC & Chem 7: 04/19/18 06:35 04/19/18 06:35 Assessment and Plan - Assessment (1) Respiratory failure with hypoxia and hypercapnia Code(s): J96.91 - Respiratory failure, unspecified with hypoxia; J96.92 - Respiratory failure, unspecified with hypercapnia Status: Acute (2) Physical deconditioning Code(s): R53.81 - Other malaise Status: Acute (3) Acute exacerbation of chronic obstructive pulmonary disease (COPD) Code(s): J44.1 - Chronic obstructive pulmonary disease with (acute) exacerbation Status: Acute - Plan 73 year old male with O2-dependent COPD, Parkinson's, and neuropathy admitted on 04/12 for acute respiratory failure secondary to COPD exacerbation. COPD exacerbation, acute hypoxemic/hypercapnic respiratory failure ABG on admission with pH 7.26, PCO2 89, PO2 52, and bicarb 39 Continue duo nebs, Symbicort, Spiriva, supplemental oxygen, budesonide nebs Continue coverage with azithromycin and Rocephin Continue BiPAP as needed Patient did not tolerate a clean weaned from Solu-Medrol, tachypnea, slightly hypoxic, will give extra single dose of 60 mg now Continue with prednisone 50 mg daily Appreciate pulmonology consult Parkinson's disease Continue home ropinirole Neuropathy Continue home gabapentin DVT prophylaxis Heparin Discharge planning When patient tolerates steroid wean without worsening may be ready for rehab discharge (1) Respiratory failure with hypoxia and hypercapnia Qualifiers: Chronicity: acute on chronic Qualified Code(s): J96.21 - Acute and chronic respiratory failure with hypoxia; J96.22 - Acute and chronic respiratory failure with hypercapnia
[2018-04-20] MEDS ORDERED: MethylPREDNISolone Sod Succinate Inj 125 MG/2 ML Vial IV.PUSH ONE (16:00)
--- NOTE | 2018-04-20 19:20 | P.PN ---
Subjective Interval history: Having a rough time this Evening with SOB. On O2 4 L. Wants a neb treatment. No chest greer Physical Exam Vital signs: Vital Signs 04/19/18 20:00 04/19/18 20:22 04/20/18 00:00 Temperature 98.6 F 98.1 F Pulse Rate 98 H 106 H 90 Respiratory Rate 18 18 18 Blood Pressure 128/75 126/63 Pulse Oximetry 96 94 L 97 04/20/18 00:43 04/20/18 04:00 04/20/18 08:00 Temperature 98.2 F 98.1 F Pulse Rate 93 H 103 H 83 Respiratory Rate 17 20 20 Blood Pressure 138/72 146/80 H Pulse Oximetry 94 L 94 L 04/20/18 08:54 04/20/18 12:00 04/20/18 13:30 Temperature 98.0 F Pulse Rate 87 101 H 98 H Respiratory Rate 12 20 16 Blood Pressure 134/67 Pulse Oximetry 98 93 L 94 L 04/20/18 16:00 Temperature 97.3 F L Pulse Rate 96 H Respiratory Rate 20 Blood Pressure 152/76 H Pulse Oximetry 98 Intake & Output 04/20/18 04/20/18 04/21/18 06:59 18:59 06:59 Intake Total 240 / 240 600 / 600 Output Total 400 / 400 250 / 250 Balance -160 / -160 350 / 350 Weight 81.2 kg Intake: Oral 240 / 240 600 / 600 Output: Urine 400 / 400 250 / 250 Other: Date of Last Bowel Movement 04/19/18 # Bowel Movements 0 0 Narrative: GENERAL: AAOx3, in Moderate distress,On O2 . SKIN: Warm and dry. No rashes HEAD: Atraumatic, normocephalic. JERSON EYES: No scleral icterus. No injection or drainage. ENT: Moist mucous membranes, patent nares, no erythema of oropharynx. NECK: Supple, trachea midline. No JVD or lymphadenopathy. Normal thyroid. CARDIOVASCULAR:Irregular rate and rhythm. No murmurs, gallops, or rubs. RESPIRATORY:Poor air exchange, tachypneic. bilateral wheezes, with accessory muscle use. GASTROINTESTINAL: Abdomen soft, non-tender, nondistended, normal active bowel sounds MUSCULOSKELETAL: No cyanosis, or edema. NEURO: CN II-XII grossly intact, no focal deficit. Results - Labs CBC & Chem 7: 04/19/18 06:35 04/19/18 06:35 Assessment and Plan - Assessment (1) Anxiety Code(s): F41.9 - Anxiety disorder, unspecified Status: Acute (2) Respiratory failure with hypoxia and hypercapnia Code(s): J96.91 - Respiratory failure, unspecified with hypoxia; J96.92 - Respiratory failure, unspecified with hypercapnia Status: Acute (3) Acute exacerbation of chronic obstructive pulmonary disease (COPD) Code(s): J44.1 - Chronic obstructive pulmonary disease with (acute) exacerbation Status: Acute (4) Physical deconditioning Code(s): R53.81 - Other malaise Status: Acute - Plan 1. Continue O2 N/C 4 L. 2. Continue antibiotics , Rocephin IV 1 G 3. Nebs q4h , Duoneb and give one dose now. 4. Symbicort 160/ 4.5 Mcg , 2 puffs BID 5. Zithromax 500 mg PO daily X2 6. Solumedrol 40 mg Q8H 6. Up with help. 7. Rehab placement (2) Respiratory failure with hypoxia and hypercapnia Qualifiers: Chronicity: acute on chronic Qualified Code(s): J96.21 - Acute and chronic respiratory failure with hypoxia; J96.22 - Acute and chronic respiratory failure with hypercapnia
[2018-04-21] MEDS: Heparin - SQ 10,000 UNITS/ML Vial SQ SCH ×2 (05:53→13:08)
[2018-04-21] MEDS: Famotidine PF Inj 20 MG/2 ML Vial IV.PUSH SCH ×2 (08:32→20:02)
[2018-04-21] MEDS: Azithromycin 250 MG Tablet PO SCH (08:32)
[2018-04-21] MEDS: guaiFENesin 600 MG ER Tablet PO SCH ×2 (08:32→20:02)
[2018-04-21] MEDS: Gabapentin 400 MG Capsule PO SCH ×2 (08:32→20:02)
[2018-04-21] MEDS: Tiotropium Bromide 18 MCG/ACT Inhaler INH SCH (08:33)
[2018-04-21] MEDS: Senna/Docusate Sodium 8.6/50 MG Tablet PO SCH ×2 (08:33→20:02)
--- NOTE | 2018-04-21 12:45 | P.PNIM ---
Subjective Interval history: Patient is currently at 5 L/min nasal cannula. His baseline is 4 L/min nasal cannula. Feels a retirement facility would be needed at this point, he was previously living at home. Physical Exam Vital signs: Vital Signs 04/20/18 13:30 04/20/18 16:00 04/20/18 19:31 Temperature 97.3 F L Pulse Rate 98 H 96 H 100 H Respiratory Rate 16 20 22 Blood Pressure 152/76 H Pulse Oximetry 94 L 98 93 L 04/20/18 19:50 04/20/18 20:00 04/20/18 23:45 Temperature 98.1 F Pulse Rate 92 H 101 H 93 H Respiratory Rate 21 Blood Pressure 153/81 H Pulse Oximetry 93 L 04/21/18 00:00 04/21/18 00:11 04/21/18 03:45 Temperature 98.0 F Pulse Rate 90 93 H 81 Respiratory Rate 19 22 Blood Pressure 160/73 H Pulse Oximetry 98 04/21/18 03:46 04/21/18 04:00 04/21/18 08:00 Temperature 97.9 F 98.2 F Pulse Rate 82 94 H 87 Respiratory Rate 16 18 17 Blood Pressure 153/70 H 148/66 H Pulse Oximetry 96 96 04/21/18 09:24 Temperature Pulse Rate 94 H Respiratory Rate 17 Blood Pressure Pulse Oximetry Intake & Output 04/20/18 04/21/18 04/21/18 18:59 06:59 18:59 Intake Total 700 / 700 340 / 340 Output Total 250 / 250 450 / 450 Balance 450 / 450 -110 / -110 Weight 80.8 kg Intake: IV 100 / 100 100 / 100 Rocephin Inj 1,000 MG In NS Inj 100 / 100 100 / 100 100 ML @ 200 mls/hr IV.SIG Q12H [facility] Rx#:[id number] Oral 600 / 600 240 / 240 Output: Urine 250 / 250 450 / 450 Other: Date of Last Bowel Movement 04/20/18 # Bowel Movements 0 Narrative: GENERAL: NAD, A&Ox3 HEAD: Normocephalic. NECK: Supple, trachea midline. No lymphadenopathy. EYES: No scleral icterus. No injection or drainage. CARDIOVASCULAR: Regular rate and rhythm without murmurs, gallops, or rubs. RESPIRATORY: Breath sounds equal bilaterally. No accessory muscle use. GASTROINTESTINAL: Abdomen soft, non-tender, nondistended. MUSCULOSKELETAL: No cyanosis, or edema. SKIN: Warm and dry. NEURO: No focal neurological deficits. Results - Labs CBC & Chem 7: 04/19/18 06:35 04/19/18 06:35 Assessment and Plan - Assessment (1) Respiratory failure with hypoxia and hypercapnia Code(s): J96.91 - Respiratory failure, unspecified with hypoxia; J96.92 - Respiratory failure, unspecified with hypercapnia Status: Acute (2) Physical deconditioning Code(s): R53.81 - Other malaise Status: Acute (3) Acute exacerbation of chronic obstructive pulmonary disease (COPD) Code(s): J44.1 - Chronic obstructive pulmonary disease with (acute) exacerbation Status: Acute - Plan 73 year old male admitted secondary to COPD exacerbation with acute on chronic respiratory failure. COPD exacerbation acute hypoxemic/hypercapnic respiratory failure Chronic oxygen dependence Patient is not yet back to baseline Baseline is 4 L/min, he is currently at 5 L/min Continue duo nebs, Symbicort, Spiriva, supplemental oxygen, budesonide nebs Continue coverage with azithromycin and Rocephin Continue BiPAP Continue with prednisone 50 mg daily Pulmonology following Parkinson's disease Continue home ropinirole Neuropathy Continue home gabapentin DVT prophylaxis Heparin Discharge planning Plan for discharge to retirement facility (1) Respiratory failure with hypoxia and hypercapnia Qualifiers: Chronicity: acute on chronic Qualified Code(s): J96.21 - Acute and chronic respiratory failure with hypoxia; J96.22 - Acute and chronic respiratory failure with hypercapnia
--- NOTE | 2018-04-21 14:16 | P.PN ---
Subjective Interval history: Seems more alert and less dyspneic today. Has some leg edema. No chest pain. On o2 6 L.Refused BiPAP Physical Exam Vital signs: Vital Signs 04/20/18 16:00 04/20/18 19:31 04/20/18 19:50 Temperature 97.3 F L Pulse Rate 96 H 100 H 92 H Respiratory Rate 20 22 Blood Pressure 152/76 H Pulse Oximetry 98 93 L 04/20/18 20:00 04/20/18 23:45 04/21/18 00:00 Temperature 98.1 F 98.0 F Pulse Rate 101 H 93 H 90 Respiratory Rate 21 19 Blood Pressure 153/81 H 160/73 H Pulse Oximetry 93 L 98 04/21/18 00:11 04/21/18 03:45 04/21/18 03:46 Temperature Pulse Rate 93 H 81 82 Respiratory Rate 22 16 Blood Pressure Pulse Oximetry 04/21/18 04:00 04/21/18 08:00 04/21/18 09:24 Temperature 97.9 F 98.2 F Pulse Rate 94 H 87 94 H Respiratory Rate 18 17 17 Blood Pressure 153/70 H 148/66 H Pulse Oximetry 96 96 04/21/18 12:00 Temperature 98.2 F Pulse Rate 99 H Respiratory Rate 17 Blood Pressure 144/67 H Pulse Oximetry 93 L Intake & Output 04/20/18 04/21/18 04/21/18 18:59 06:59 18:59 Intake Total 700 / 700 340 / 340 Output Total 250 / 250 450 / 450 Balance 450 / 450 -110 / -110 Weight 80.8 kg Intake: IV 100 / 100 100 / 100 Rocephin Inj 1,000 MG In NS Inj 100 / 100 100 / 100 100 ML @ 200 mls/hr IV.SIG Q12H [facility] Rx#:[id number] Oral 600 / 600 240 / 240 Output: Urine 250 / 250 450 / 450 Other: Date of Last Bowel Movement 04/20/18 # Bowel Movements 0 Narrative: GENERAL: Elderly W/M face plethoric and anxious HEAD: Normocephalic. NECK: Supple, trachea midline. No lymphadenopathy. EYES: No scleral icterus. No injection or drainage. CARDIOVASCULAR: Regular rate and rhythm without murmurs, gallops, or rubs. RESPIRATORY: Breath sounds equal bilaterally. Bilateral wheeze. No accessory muscle use. GASTROINTESTINAL: Abdomen soft, non-tender, nondistended. MUSCULOSKELETAL: No cyanosis, but has 1 + edema. SKIN: Warm and dry. NEURO: No focal neurological deficits. Results - Labs CBC & Chem 7: 04/19/18 06:35 04/19/18 06:35 Assessment and Plan - Assessment (1) Anxiety Code(s): F41.9 - Anxiety disorder, unspecified Status: Acute (2) Respiratory failure with hypoxia and hypercapnia Code(s): J96.91 - Respiratory failure, unspecified with hypoxia; J96.92 - Respiratory failure, unspecified with hypercapnia Status: Acute (3) Acute exacerbation of chronic obstructive pulmonary disease (COPD) Code(s): J44.1 - Chronic obstructive pulmonary disease with (acute) exacerbation Status: Acute (4) Physical deconditioning Code(s): R53.81 - Other malaise Status: Acute - Plan 1. Continue O2 N/C 3 L. 2. Continue antibiotics , Rocephin IV 1 G 3. Nebs q4h , Duoneb and PRN. 4. Symbicort 160/ 4.5 Mcg , 2 puffs BID 5. Chest Xray 6. Cont Prednisone 50 mg daily and taper 6. Up with help. 7. Rehab placement (2) Respiratory failure with hypoxia and hypercapnia Qualifiers: Chronicity: acute on chronic Qualified Code(s): J96.21 - Acute and chronic respiratory failure with hypoxia; J96.22 - Acute and chronic respiratory failure with hypercapnia
[2018-04-22] MEDS: Heparin - SQ 10,000 UNITS/ML Vial SQ SCH ×4 (00:04→23:41)
[2018-04-22] MEDS: guaiFENesin 600 MG ER Tablet PO SCH ×2 (10:31→20:18)
[2018-04-22] MEDS: Gabapentin 400 MG Capsule PO SCH ×2 (10:31→20:18)
[2018-04-22] MEDS: Senna/Docusate Sodium 8.6/50 MG Tablet PO SCH ×2 (10:31→20:18)
[2018-04-22] MEDS: Famotidine PF Inj 20 MG/2 ML Vial IV.PUSH SCH ×2 (10:32→20:17)
--- NOTE | 2018-04-22 12:20 | P.PNIM ---
Subjective Interval history: Improved oxygen saturation on 5 L, weaned to 4 L plan prior to discharge. Patient has no new complaints today. No fevers overnight. Physical Exam Vital signs: Vital Signs 04/21/18 16:00 04/21/18 16:38 04/21/18 19:55 Temperature 97.8 F Pulse Rate 101 H 99 H 75 Respiratory Rate 17 18 20 Blood Pressure 144/75 H Pulse Oximetry 92 L 04/21/18 20:00 04/22/18 00:00 04/22/18 00:23 Temperature 98.0 F 97.6 F Pulse Rate 99 H 80 86 Respiratory Rate 20 19 16 Blood Pressure 145/71 H 144/66 H Pulse Oximetry 93 L 98 98 04/22/18 04:00 04/22/18 05:33 04/22/18 07:10 Temperature Pulse Rate 95 H 84 Respiratory Rate 16 18 Blood Pressure Pulse Oximetry 04/22/18 08:00 04/22/18 08:37 Temperature 97.4 F L Pulse Rate 88 84 Respiratory Rate 16 16 Blood Pressure 153/71 H Pulse Oximetry 94 L 98 Intake & Output 04/21/18 04/22/18 04/22/18 18:59 06:59 18:59 Intake Total 580 / 580 100 / 100 Balance 580 / 580 100 / 100 Weight 84.5 kg Intake: IV 100 / 100 100 / 100 Rocephin Inj 1,000 MG In NS Inj 100 / 100 100 / 100 100 ML @ 200 mls/hr IV.SIG Q12H [facility] Rx#:[id number] Oral 480 / 480 Other: # Voids 2 Date of Last Bowel Movement 04/20/18 # Bowel Movements 1 Narrative: GENERAL: NAD, A&Ox3 HEAD: Normocephalic. NECK: Supple, trachea midline. No lymphadenopathy. EYES: No scleral icterus. No injection or drainage. CARDIOVASCULAR: Regular rate and rhythm without murmurs, gallops, or rubs. RESPIRATORY: Breath sounds equal bilaterally. Chronic accessory muscle use. GASTROINTESTINAL: Abdomen soft, non-tender, nondistended. MUSCULOSKELETAL: No cyanosis, or edema. SKIN: Warm and dry. NEURO: No focal neurological deficits. Results - Labs CBC & Chem 7: 04/19/18 06:35 04/19/18 06:35 Assessment and Plan - Assessment (1) Respiratory failure with hypoxia and hypercapnia Code(s): J96.91 - Respiratory failure, unspecified with hypoxia; J96.92 - Respiratory failure, unspecified with hypercapnia Status: Acute (2) Physical deconditioning Code(s): R53.81 - Other malaise Status: Acute (3) Acute exacerbation of chronic obstructive pulmonary disease (COPD) Code(s): J44.1 - Chronic obstructive pulmonary disease with (acute) exacerbation Status: Acute - Plan 73 year old male admitted secondary to COPD exacerbation with acute on chronic respiratory failure. Wean oxygen to 4 L as tolerated, patient is a candidate for discharge to halfway facility after stable on 4 L of oxygen. COPD exacerbation acute hypoxemic/hypercapnic respiratory failure Chronic oxygen dependence Patient is not yet back to baseline Baseline is 4 L/min, he is currently at 5 L/min Continue duo nebs, Symbicort, Spiriva, supplemental oxygen, budesonide nebs Continue coverage with azithromycin and Rocephin Continue BiPAP Continue with prednisone 50 mg daily Pulmonology following Parkinson's disease Continue home ropinirole Neuropathy Continue home gabapentin DVT prophylaxis Heparin Discharge planning Plan for discharge to halfway facility once respiratory status is stabilized (1) Respiratory failure with hypoxia and hypercapnia Qualifiers: Chronicity: acute on chronic Qualified Code(s): J96.21 - Acute and chronic respiratory failure with hypoxia; J96.22 - Acute and chronic respiratory failure with hypercapnia
--- NOTE | 2018-04-22 13:05 | P.PN ---
Subjective Interval history: he is better. No chest pain. No fever. On o2 4 L Physical Exam Vital signs: Vital Signs 04/21/18 16:00 04/21/18 16:38 04/21/18 19:55 Temperature 97.8 F Pulse Rate 101 H 99 H 75 Respiratory Rate 17 18 20 Blood Pressure 144/75 H Pulse Oximetry 92 L 04/21/18 20:00 04/22/18 00:00 04/22/18 00:23 Temperature 98.0 F 97.6 F Pulse Rate 99 H 80 86 Respiratory Rate 20 19 16 Blood Pressure 145/71 H 144/66 H Pulse Oximetry 93 L 98 98 04/22/18 04:00 04/22/18 05:33 04/22/18 07:10 Temperature Pulse Rate 95 H 84 Respiratory Rate 16 18 Blood Pressure Pulse Oximetry 04/22/18 08:00 04/22/18 08:37 Temperature 97.4 F L Pulse Rate 88 84 Respiratory Rate 16 16 Blood Pressure 153/71 H Pulse Oximetry 94 L 98 Intake & Output 04/21/18 04/22/18 04/22/18 18:59 06:59 18:59 Intake Total 580 / 580 100 / 100 Balance 580 / 580 100 / 100 Weight 84.5 kg Intake: IV 100 / 100 100 / 100 Rocephin Inj 1,000 MG In NS Inj 100 / 100 100 / 100 100 ML @ 200 mls/hr IV.SIG Q12H [facility] Rx#:[id number] Oral 480 / 480 Other: # Voids 2 Date of Last Bowel Movement 04/20/18 # Bowel Movements 1 Narrative: GENERAL: NAD, A&Ox3 HEAD: Normocephalic. NECK: Supple, trachea midline. No lymphadenopathy. EYES: No scleral icterus. No injection or drainage. CARDIOVASCULAR: Regular rate and rhythm without murmurs, gallops, or rubs. RESPIRATORY: Breath sounds equal bilaterally. Bilateral wheeze and accessory muscle use. GASTROINTESTINAL: Abdomen soft, non-tender, nondistended. MUSCULOSKELETAL: No cyanosis, but has 1 + edema. SKIN: Warm and dry. NEURO: No focal neurological deficits. Results - Labs CBC & Chem 7: 04/19/18 06:35 04/19/18 06:35 Assessment and Plan - Assessment (1) Anxiety Code(s): F41.9 - Anxiety disorder, unspecified Status: Acute (2) Respiratory failure with hypoxia and hypercapnia Code(s): J96.91 - Respiratory failure, unspecified with hypoxia; J96.92 - Respiratory failure, unspecified with hypercapnia Status: Acute (3) Acute exacerbation of chronic obstructive pulmonary disease (COPD) Code(s): J44.1 - Chronic obstructive pulmonary disease with (acute) exacerbation Status: Acute (4) Physical deconditioning Code(s): R53.81 - Other malaise Status: Acute - Plan 1. Continue O2 N/C 3 L. 2. D/C Rocephin IV and add Ceftin 500 mg BID X 5 days 3. Nebs q4h , Duoneb and PRN. 4. Symbicort 160/ 4.5 Mcg , 2 puffs BID 5. CBC, BMP 6. Prednisone 50 mg daily and taper 6. Up with help. 7. Rehab placement (2) Respiratory failure with hypoxia and hypercapnia Qualifiers: Chronicity: acute on chronic Qualified Code(s): J96.21 - Acute and chronic respiratory failure with hypoxia; J96.22 - Acute and chronic respiratory failure with hypercapnia
[2018-04-22] MEDS: Tiotropium Bromide 18 MCG/ACT Inhaler INH SCH (15:11)
[2018-04-22] MEDS: predniSONE 20 MG Tablet PO SCH (20:18)
[2018-04-23] MEDS: Heparin - SQ 10,000 UNITS/ML Vial SQ SCH ×3 (05:51→21:41)
[2018-04-23] MEDS: predniSONE 20 MG Tablet PO SCH ×2 (09:10→21:41)
[2018-04-23] MEDS: Senna/Docusate Sodium 8.6/50 MG Tablet PO SCH ×2 (09:10→21:41)
[2018-04-23] MEDS: guaiFENesin 600 MG ER Tablet PO SCH ×2 (09:10→21:41)
[2018-04-23] MEDS: Famotidine PF Inj 20 MG/2 ML Vial IV.PUSH SCH ×2 (09:11→21:42)
[2018-04-23] MEDS: Gabapentin 400 MG Capsule PO SCH ×2 (09:11→21:41)
[2018-04-23] MEDS: Tiotropium Bromide 18 MCG/ACT Inhaler INH SCH (09:12)
--- NOTE | 2018-04-23 13:01 | P.PNIM ---
Subjective Interval history: Patient tolerated 4L/min oxygen via NC this morning. Needed to return to 5L/ min at noon. No new complaints form the patient. Physical Exam Vital signs: Vital Signs 04/22/18 16:00 04/22/18 16:53 04/22/18 17:57 Temperature 98.0 F Pulse Rate 87 100 H Respiratory Rate 16 15 18 Blood Pressure 146/70 H Pulse Oximetry 93 L 04/22/18 20:00 04/22/18 20:32 04/22/18 20:52 Temperature 97.9 F Pulse Rate 84 91 H 94 H Respiratory Rate 19 17 19 Blood Pressure 137/83 Pulse Oximetry 93 L 92 L 92 L 04/23/18 00:00 04/23/18 02:52 04/23/18 04:00 Temperature 97.5 F L 97.1 F L Pulse Rate 89 79 97 H Respiratory Rate 18 17 18 Blood Pressure 144/77 H 157/85 H Pulse Oximetry 97 98 04/23/18 08:00 04/23/18 08:36 04/23/18 11:47 Temperature 98.1 F Pulse Rate 77 80 102 H Respiratory Rate 17 12 15 Blood Pressure 156/75 H Pulse Oximetry 99 97 92 L 04/23/18 12:00 04/23/18 12:09 Temperature 97.4 F L Pulse Rate 92 H Respiratory Rate 18 Blood Pressure 134/65 Pulse Oximetry 96 97 Intake & Output 04/22/18 04/23/18 04/23/18 18:59 06:59 18:59 Intake Total 580 / 580 1440 / 1440 Output Total 800 / 800 1275 / 1275 Balance -220 / -220 165 / 165 Weight 83.8 kg Intake: IV 200 / 200 Rocephin Inj 1,000 MG In NS Inj 200 / 200 100 ML @ 200 mls/hr IV.SIG Q12H NAZIA Rx#:[id number] Oral 380 / 380 1440 / 1440 Output: Urine 800 / 800 1275 / 1275 Other: Date of Last Bowel Movement 04/20/18 04/22/18 04/22/18 # Bowel Movements 0 Narrative: GENERAL: NAD, A&Ox3 HEAD: Normocephalic. NECK: Supple, trachea midline. No lymphadenopathy. EYES: No scleral icterus. No injection or drainage. CARDIOVASCULAR: Regular rate and rhythm without murmurs, gallops, or rubs. RESPIRATORY: Breath sounds equal bilaterally. Chronic accessory muscle use. GASTROINTESTINAL: Abdomen soft, non-tender, nondistended. MUSCULOSKELETAL: No cyanosis, or edema. SKIN: Warm and dry. NEURO: No focal neurological deficits. Results - Labs CBC & Chem 7: 04/19/18 06:35 04/19/18 06:35 Assessment and Plan - Assessment (1) Respiratory failure with hypoxia and hypercapnia Code(s): J96.91 - Respiratory failure, unspecified with hypoxia; J96.92 - Respiratory failure, unspecified with hypercapnia Status: Acute (2) Physical deconditioning Code(s): R53.81 - Other malaise Status: Acute (3) Acute exacerbation of chronic obstructive pulmonary disease (COPD) Code(s): J44.1 - Chronic obstructive pulmonary disease with (acute) exacerbation Status: Acute - Plan 73 year old male admitted secondary to COPD exacerbation with acute on chronic respiratory failure. Patient is approaching baseline. There is a possibility as baseline might be at 5 L/min now. Wean oxygen to 4 L as tolerated, patient is a candidate for discharge to senior living facility after stable on 4 L of oxygen. COPD exacerbation acute hypoxemic/hypercapnic respiratory failure Chronic oxygen dependence Patient is not yet back to baseline Baseline is 4 L/min, he is currently at 5 L/min Continue duo nebs, Symbicort, Spiriva, supplemental oxygen, budesonide nebs Continue coverage with azithromycin and Rocephin Continue BiPAP Continue with prednisone 50 mg daily Pulmonology following Parkinson's disease Continue home ropinirole Neuropathy Continue home gabapentin DVT prophylaxis Heparin Discharge planning Plan for discharge to senior living facility once respiratory status is stabilized (1) Respiratory failure with hypoxia and hypercapnia Qualifiers: Chronicity: acute on chronic Qualified Code(s): J96.21 - Acute and chronic respiratory failure with hypoxia; J96.22 - Acute and chronic respiratory failure with hypercapnia
--- NOTE | 2018-04-23 18:09 | P.PN ---
Subjective Interval history: Awake and SOB. On O2 5 L. No chest pain. Anxious Physical Exam Vital signs: Vital Signs 04/22/18 20:00 04/22/18 20:32 04/22/18 20:52 Temperature 97.9 F Pulse Rate 84 91 H 94 H Respiratory Rate 19 17 19 Blood Pressure 137/83 Pulse Oximetry 93 L 92 L 92 L 04/23/18 00:00 04/23/18 02:52 04/23/18 04:00 Temperature 97.5 F L 97.1 F L Pulse Rate 89 79 97 H Respiratory Rate 18 17 18 Blood Pressure 144/77 H 157/85 H Pulse Oximetry 97 98 04/23/18 08:00 04/23/18 08:36 04/23/18 11:47 Temperature 98.1 F Pulse Rate 77 80 102 H Respiratory Rate 17 12 15 Blood Pressure 156/75 H Pulse Oximetry 99 97 92 L 04/23/18 12:00 04/23/18 12:09 04/23/18 14:51 Temperature 97.4 F L Pulse Rate 93 H 105 H Respiratory Rate 18 12 Blood Pressure 134/65 Pulse Oximetry 96 97 04/23/18 16:00 Temperature 98.3 F Pulse Rate 95 H Respiratory Rate 20 Blood Pressure 159/68 H Pulse Oximetry 94 L Intake & Output 04/22/18 04/23/18 04/23/18 18:59 06:59 18:59 Intake Total 580 / 580 1440 / 1440 Output Total 800 / 800 1275 / 1275 Balance -220 / -220 165 / 165 Weight 83.8 kg Intake: IV 200 / 200 Rocephin Inj 1,000 MG In NS Inj 200 / 200 100 ML @ 200 mls/hr IV.SIG Q12H NAZIA Rx#:[id number] Oral 380 / 380 1440 / 1440 Output: Urine 800 / 800 1275 / 1275 Other: Date of Last Bowel Movement 04/20/18 04/22/18 04/22/18 # Bowel Movements 0 Narrative: GENERAL: NAD, A&Ox3 HEAD: Normocephalic. NECK: Supple, trachea midline. No lymphadenopathy. EYES: No scleral icterus. No injection or drainage. CARDIOVASCULAR: Regular rate and rhythm without murmurs, gallops, or rubs. RESPIRATORY: Breath sounds equal bilaterally. Bilateral wheeze. Chronic accessory muscle use. GASTROINTESTINAL: Abdomen soft, non-tender, nondistended. MUSCULOSKELETAL: No cyanosis, but has edema. SKIN: Warm and dry. NEURO: No focal neurological deficits. Results - Labs CBC & Chem 7: 04/19/18 06:35 04/19/18 06:35 Assessment and Plan - Assessment (1) Anxiety Code(s): F41.9 - Anxiety disorder, unspecified Status: Acute (2) Respiratory failure with hypoxia and hypercapnia Code(s): J96.91 - Respiratory failure, unspecified with hypoxia; J96.92 - Respiratory failure, unspecified with hypercapnia Status: Acute (3) Acute exacerbation of chronic obstructive pulmonary disease (COPD) Code(s): J44.1 - Chronic obstructive pulmonary disease with (acute) exacerbation Status: Acute (4) Physical deconditioning Code(s): R53.81 - Other malaise Status: Acute - Plan 1. Continue O2 N/C 4 L. 2. Ceftin 500 mg BID X 5 days 3. Nebs q4h , Duoneb and PRN. 4. Symbicort 160/ 4.5 Mcg , 2 puffs BID 5. Mucinex 600 mg BID 6. Prednisone 20 mg BID daily and taper 6. Up with help. 7. Rehab placement (2) Respiratory failure with hypoxia and hypercapnia Qualifiers: Chronicity: acute on chronic Qualified Code(s): J96.21 - Acute and chronic respiratory failure with hypoxia; J96.22 - Acute and chronic respiratory failure with hypercapnia
[2018-04-24] MEDS: guaiFENesin 600 MG ER Tablet PO SCH (09:52)
[2018-04-24] MEDS: Famotidine PF Inj 20 MG/2 ML Vial IV.PUSH SCH (09:52)
[2018-04-24] MEDS: predniSONE 20 MG Tablet PO SCH (09:52)
[2018-04-24] MEDS: Senna/Docusate Sodium 8.6/50 MG Tablet PO SCH (09:53)
[2018-04-24] MEDS: Gabapentin 400 MG Capsule PO SCH (09:53)
[2018-04-24] MEDS: Tiotropium Bromide 18 MCG/ACT Inhaler INH SCH (09:55)
--- NOTE | 2018-04-24 12:32 | P.DS ---
Date of admission: 04/12/18 19:45 Primary care physician: UNKNOWN Brief History from admission: 73-year-old male with past medical history significant for COPD on 4 L nasal cannula at home, hypertension, Parkinson's disease, neuropathy, presents with complaint of shortness of breath. Most of the history comes from the medical chart review as the patient is too dyspneic and too altered to answer most questions. Earlier today he started to be more disoriented than normal with increased work of breathing. This has worsened throughout the day prior to becoming here. He denies fevers and chills. Patient denies pain at this time. Per chart documentation the CODE STATUS was discussed with patient's who states that she and the patient have had an extensive discussion regarding his goals of care and they refuse intubation if it becomes necessary. DS: Diagnosis - Discharge Diagnosis (1) Respiratory failure with hypoxia and hypercapnia Status: Acute (2) Physical deconditioning Status: Acute (3) Acute exacerbation of chronic obstructive pulmonary disease (COPD) Status: Acute DS: Medications - Discharge Medications Prescriptions: budesonide-formoterol [Symbicort] 2 puff INH BID #1 inh cefuroxime axetil 500 mg PO Q12HR 4 Days #8 tab guaifenesin [Mucinex] 600 mg PO BID #30 tab ipratropium-albuterol 1 amp NEB Q6HR WHILE AWAKE NEB #100 ml Lactobacillus acidophilus 500 mmu cells PO TID #30 cap magnesium hydroxide [Milk of Magnesia] 30 ml PO Q12H PRN #100 ml PRN Reason: Mild Constipation pravastatin 80 mg PO DAILY@1800 #30 tab prednisone 10 mg PO DIRECTED #38 tab tiotropium bromide [Spiriva with HandiHaler] 18 mcg INH DAILY #1 inh tramadol 50 mg PO Q6H #15 tab DS: Summary Hospital Course: Mr. Mac is a 73-year-old male. He has severe COPD at baseline and his baseline oxygen treatment was 4 L/min. He was admitted secondary to hypoxia with COPD exacerbation. This has been a slow recovery for him. Today he is able to be weaned down under 5 L of oxygen. Thus far is tolerating his present oxygen treatment. Global weakness is present and he will need care home facility at discharge but this point he is stable for discharge to care home facility for further recovery. - Time Spent with Patient Total time spent providing and/or coordinating discharge services: Greater than 30 minutes Exam Vital signs: Vital Signs 04/23/18 14:51 04/23/18 16:00 04/23/18 19:28 Temperature 98.3 F Pulse Rate 105 H 95 H 99 H Respiratory Rate 12 20 16 Blood Pressure 159/68 H Pulse Oximetry 94 L 95 04/23/18 20:00 04/23/18 23:54 04/24/18 00:00 Temperature 97.8 F 97.9 F Pulse Rate 95 H 95 H 83 Respiratory Rate 20 20 20 Blood Pressure 143/68 H 143/78 H Pulse Oximetry 94 L 94 L 04/24/18 03:45 04/24/18 03:53 04/24/18 04:00 Temperature 97.6 F Pulse Rate 78 86 89 Respiratory Rate 16 20 Blood Pressure 151/73 H Pulse Oximetry 95 04/24/18 07:39 04/24/18 08:00 Temperature 97.5 F L Pulse Rate 88 88 Respiratory Rate 12 18 Blood Pressure 158/80 H Pulse Oximetry 95 95 Intake & Output 04/23/18 04/24/18 04/24/18 18:59 06:59 18:59 Intake Total 720 / 720 240 / 240 Output Total 800 / 800 1999 Balance -80 / -80 -1760 / -1760 Weight 79.9 kg Intake: Oral 720 / 720 240 / 240 Output: Urine 800 / 800 1999 Other: Date of Last Bowel Movement 04/23/18 # Bowel Movements 1 0 Results Procedures completed during hospitalization: none - Impressions ITS Impressions Chest X-Ray 04/16/18 13:35 CONCLUSION: COPD No evidence of acute airspace disease or significant congestion. Discharge Plan - Discharge Disposition Patient Disposition: Discharge to SNF - Discharge Condition Condition: Stable - Discharge Order Discharge Orders: Discharge Order (Routine); Ordered 04/24/18 Ordered By: Bo Lim - Discharge Details Anticipated Discharge Date: 04/24/18 - Physicians Team Primary Care Provider: UNKNOWN, Attending Provider: Bo Lim Other Providers: Diana Walters MD ; Loulou Simmons MD ; [employer] ; Hadley Durand MD ; [facility],[place]
[2018-04-24] MEDS: Heparin - SQ 10,000 UNITS/ML Vial SQ SCH (13:02)
--- NOTE | 2018-04-24 17:54 | P.PN ---
Subjective Interval history: He is better today. On O2 4 L. No chest pains . has some leg edema. Physical Exam Vital signs: Vital Signs 04/23/18 19:28 04/23/18 20:00 04/23/18 23:54 Temperature 97.8 F Pulse Rate 99 H 95 H 95 H Respiratory Rate 16 20 20 Blood Pressure 143/68 H Pulse Oximetry 95 94 L 04/24/18 00:00 04/24/18 03:45 04/24/18 03:53 Temperature 97.9 F Pulse Rate 83 78 86 Respiratory Rate 20 16 Blood Pressure 143/78 H Pulse Oximetry 94 L 04/24/18 04:00 04/24/18 07:39 04/24/18 08:00 Temperature 97.6 F 97.5 F L Pulse Rate 89 88 80 Respiratory Rate 20 12 18 Blood Pressure 151/73 H 158/80 H Pulse Oximetry 95 95 95 04/24/18 12:00 04/24/18 12:43 Temperature 98.1 F Pulse Rate 112 H 101 H Respiratory Rate 18 16 Blood Pressure 137/67 Pulse Oximetry 92 L Intake & Output 04/23/18 04/24/18 04/24/18 18:59 06:59 18:59 Intake Total 720 / 720 240 / 240 Output Total 800 / 800 1999 Balance -80 / -80 -1760 / -1760 Weight 79.9 kg Intake: Oral 720 / 720 240 / 240 Output: Urine 800 / 800 1999 Other: Date of Last Bowel Movement 04/23/18 04/23/18 # Bowel Movements 1 0 Narrative: GENERAL: NAD, A&Ox3 on O2 N/C HEAD: Normocephalic. NECK: Supple, trachea midline. No lymphadenopathy. EYES: No scleral icterus. No injection or drainage. CARDIOVASCULAR: Regular rate and rhythm without murmurs, gallops, or rubs. RESPIRATORY: Poor breath sounds. Bilateral wheeze. Chronic accessory muscle use. GASTROINTESTINAL: Abdomen soft, non-tender, nondistended. MUSCULOSKELETAL: No cyanosis, but has 2 + edema. SKIN: Warm and dry. NEURO: No focal neurological deficits. Results - Labs CBC & Chem 7: 04/19/18 06:35 04/19/18 06:35 - Procedures none Assessment and Plan - Assessment (1) Anxiety Code(s): F41.9 - Anxiety disorder, unspecified Status: Acute (2) Respiratory failure with hypoxia and hypercapnia Code(s): J96.91 - Respiratory failure, unspecified with hypoxia; J96.92 - Respiratory failure, unspecified with hypercapnia Status: Acute (3) Acute exacerbation of chronic obstructive pulmonary disease (COPD) Code(s): J44.1 - Chronic obstructive pulmonary disease with (acute) exacerbation Status: Acute (4) Physical deconditioning Code(s): R53.81 - Other malaise Status: Acute - Plan 1. Continue O2 N/C 4 L. 2. Ceftin 500 mg BID X 3 days 3. Nebs q6h , Duoneb and PRN. 4. Symbicort 160/ 4.5 Mcg , 2 puffs BID 5. Mucinex 600 mg BID 6. Prednisone 30 mg daily . 7. Rehab placement (2) Respiratory failure with hypoxia and hypercapnia Qualifiers: Chronicity: acute on chronic Qualified Code(s): J96.21 - Acute and chronic respiratory failure with hypoxia; J96.22 - Acute and chronic respiratory failure with hypercapnia
== END 2018-04-24 15:32 ==
LOC: PHED 17:50 → PHEDA 19:45 → HIMC 04-13 01:45 → N04 04-14 12:18
PROVIDERS: ADMIT Hospitalist; ATTEND Hospitalist